=== PATIENT | female | born 1975 | race Caucasian/White ===

== ENCOUNTER 2022-06-30 16:51 | Outpatient (RCR) | payer OTHER, MEDICAID, SELFPAY ==
[2022-06-30 17:05] VITALS: BP_SYST 90
--- NOTE | 2022-06-30 18:05 | PTOPEVAL1 ---
Assessment and note entered by JT File, PT Evaluation Information Assessment Status Evaluation Diagnosis R biceps tenodesis Onset 06/03/22 Subjective Information patient injured the R shoulder back in august of 2021. she tried several non-invasive therapies with no improvement. she eventually had surgery on 06/03/22 for biceps tenodesis. she is now coming to skilled PT for rehab and temple of full strength and mobility. he is currently on a 2lb lifting restriction. Reported Pain Level Pain Score 0: Self Report Assessment PT Clinical Summary mrs. mead presents to skilled PT nearly 4 weeks post R biceps tenodesis. she presents this date with pain, decreased rom, and decreased strength of the R shoulder. she would benefit from continued skilled PT to return to full strength and rom equal to that of the L shoulder to return to full prior level functional activity performance and quality of life. Plan of Care Interventions Electrical Stimulation,Hot Pack/Cold Pack,Manual Therapy,Neuro Re-education,Patient/Caregiver Educati,Therapeutic Activities,Therapeutic Exercise PT Services Indicated Yes Treatment Frequency and 3x weekly for 12 visits Duration These treatments will address the objective and functional deficits as defined above. The patient will be advanced safely and appropriately in order for the patient to progress towards his/her prior level of function. Additional exercises will be introduced and as well as a comprehensive home exercise program upon discharge, if needed, ?to ensure carryover of functional gains achieved in the clinic. This treatment plan has been reviewed and agreement upon by the patient.
--- NOTE | 2022-08-03 17:51 | PTOPREEVAL ---
Assessment and note entered by Lara Ayala DPT Evaluation Information Assessment Status Re-evaluation Diagnosis R biceps tenodesis Onset 06/03/22 Subjective Information Ami reports overall her shoulder is much improved. she reports improvement with all activities besides reaching behind her and into her back pocket. She reports she has broken her 5# lifting precautions a few times and reports lifting was difficult. RTMD 08/13/22 Reported Pain Level Pain Score 3: Self Report Assessment PT Clinical Summary Mrs Starkey has made good progress in skilled PT . She has significantly improved ROM into R shoulder flexion and abduction but continues to have limited IR/ER of the R shoulder. She also has strength deficts at this time. She reports improvement with all activities but continues to report difficulty washing her back and reaching to her back pocket. She would benefit from continued skilled PT to address remaining impairments and return to PLOF. Plan of Care Interventions Electrical Stimulation,Hot Pack/Cold Pack,Manual Therapy,Neuro Re-education,Patient/Caregiver Educati,Therapeutic Activities,Therapeutic Exercise PT Services Indicated Yes Treatment Frequency and 2x weekly for 6 visits Duration These treatments will address the objective and functional deficits as defined above. The patient will be advanced safely and appropriately in order for the patient to progress towards his/her prior level of function. Additional exercises will be introduced and as well as a comprehensive home exercise program upon discharge, if needed, ?to ensure carryover of functional gains achieved in the clinic. This treatment plan has been reviewed and agreement upon by the patient.
--- NOTE | 2022-08-31 17:38 | PTOPDC ---
Assessment and note entered by Lara Ayala DPT Evaluation Information Assessment Status Re-evaluation Diagnosis R biceps tenodesis Onset 06/03/22 Subjective Information Patient reports the only times she notices deficits in the shoulder is with sleeping on the R side and sometimes she has discomfort at the bicep. She reports she has been able to return to all ADLs at PLOF. Reported Pain Level Pain Score 0: Self Report Assessment PT Clinical Summary Patient has been since for 18 visits from 06/30/22-. Patient made great progress during POC and met all goals besides goal for R shoulder ER/IR. Patient has returned to all ADLs at PLOF. She is independent with HEP and is appropriate for DC at this time. Plan of Care PT Services Indicated No Treatment Frequency and DC to independent HEP Duration
== END 2022-08-31 17:43 | disposition home or self-care (01) ==
LOC: CHSPT 16:51
PROVIDERS: Visit Provider Orthopaedic Surgery
DX: M75.21 Bicipital tendinitis, right shoulder (principal)
CPT/HCPCS: 97014; 97110; 97116; 97161; 97530; G0283

== ENCOUNTER 2022-09-23 11:29 | Emergency (ER) | payer OTHER, MEDICAID, SELFPAY ==
[2022-09-23 11:29] VITALS: BP 128/82; PULSE 87; RESP 20; TEMP 36.8; O2SAT 96
--- NOTE | 2022-09-23 11:54 | ECG_ITS ---
Measurements Intervals [place] Rate: 76 P: 44 AR: 157 QRS: 23 QRSD: 85 T: 31 QT: 375 QTc: 424 Interpretive Statements SINUS RHYTHM NONSPECIFIC T-WAVE ABNORMALITY- ANTEROLAT/INF LEADS BASELINE WANDER- I, II, AVR, AVL, AVF BORDERLINE ECG NO PREVIOUS ECG AVAILABLE FOR COMPARISON Electronically Signed On 09-23-2022 12:49:21 CDT by Dennis Ragsdale D.O.
[2022-09-23] MEDS: SODIUM CHLORIDE 0.9% IV 1,000 ML 999 ML IV CONT (12:09)
[2022-09-23 12:16] LABS: Appearance Urine Clear (Clear); Bilirubin Urine Negative (Negative); Blood Urine Negative (Negative); Color Urine Light Yellow (Yellow); Glucose Urine UA Negative (Negative); Ketones Urine Negative (Negative); Leukocyte Esterase Ur Trace LEU/UL (Negative); Nitrate Urine Negative (Negative); Protein Urine Negative (Negative); Urobilinogen Urine 0.2 mg/dL (0.2-1.0)
[2022-09-23 12:17] LABS: Basophils Absolute Auto 0.04 K/mm3 (0.00-0.10); Basophils Percent Auto 0.5 % (0.0-1.0); Eosinophils Absolute Auto 0.15 K/mm3 (0.02-0.50); Hematocrit 38.4 % (35.0-49.0); Hemoglobin 12.2 g/dL (12.0-15.0); Immature Granulocyte Absolute 0.04 K/mm3 (0.00-0.00); Immature Granulocyte Percent A 0.5 % (0.0-0.0); Lymphocytes Absolute Auto 2.91 K/mm3 (1.10-4.50); Lymphocytes Percent Auto 38.6 % (18.0-42.0); Mean Corpuscular HGB Conc 31.8 g/dL (32.0-36.0); Mean Corpuscular Hemoglobin 28.2 pg (27.0-31.0); Mean Corpuscular Volume 88.7 fL (78.0-102.0); Mean Platelet Volume 10.1 fl (9.2-11.8); Neutrophils Absolute Auto 3.8 K/mm3 (1.7-7.2); Neutrophils Percent Auto 50.4 % (50.0-70.0); Platelet Count Result 283 K/mm3 (150-420); Red Blood Count 4.33 M/mm3 (4.20-5.40); Red Cell Distribution Width 13.5 % (11.6-14.4); White Blood Count 7.5 K/mm3 (4.8-10.8)
[2022-09-23 12:24] LABS: Add Urine Microscopic? YES; Bacteria Urine 3+ /hpf; RBC Urine None seen /hpf (0-2); Squamous Epithelial Cell Urine Moderate /hpf (Few); WBC Urine 0-3 /hpf (0-3)
[2022-09-23 12:39] LABS: Alanine Aminotransferase 26 U/L (14-59); Albumin Level 3.2 g/dL (3.4-5.0); Alkaline Phosphatase 83 U/L (46-116); Anion Gap 9 mmol/L (8-16); Aspartate Amino Transferase 12 U/L (15-37); Bilirubin,Total 0.5 mg/dL (0.00-1.00); Blood Urea Nitrogen 18 mg/dL (7-18); Calcium 8.6 mg/dL (8.5-10.1); Carbon Dioxide 31 mmol/L (21-32); Chloride 108 mmol/L (98-108); Creatine Kinase 64 U/L (26-192); Estimated Glomerular Filt Rate 50; Glucose 91 mg/dL (70-99); Osmolality Calculated 307 mOsm/kg (285-295); Potassium 3.6 mmol/L (3.5-5.1); Sodium 148 mmol/L (136-145); Thyroid Stimulating Hormone 1.06 uIU/mL (0.36-3.74); Total Protein 6.8 g/dL (6.4-8.2)
--- NOTE | 2022-09-23 12:47 | ED.FEMALEGU ---
HPI - Female Genitourinary General Chief complaint: Unspecified Stated complaint: general fatigue/low back pain Time Seen by Provider: 09/23/22 11:35 Source: patient Mode of arrival: ambulatory Limitations: no limitations History of Present Illness HPI Narrative: this is a 47-year-old female with no significant past medical history has had complaints of some generalized aches and pains for the last 3 months has seen her primary care physician and apparently could not find any abnormalities, the patient does have a history of hyperlipidemia and depression. There is some lower abdominal discomfort with some dysuria with no hematuria no flank pain no fever chills no nausea vomiting no chest pain or shortness of breath. Related Data Home Medications Medication Instructions Recorded Confirmed atorvastatin 20 mg tablet 20 mg PO DAILY 09/23/22 09/23/22 escitalopram oxalate 10 mg tablet 10 mg PO DAILY 09/23/22 09/23/22 metoprolol tartrate 25 mg tablet 12.5 mg PO BID 09/23/22 09/23/22 norethindrone (contraceptive) 0.35 0.35 mg PO DAILY 09/23/22 09/23/22 mg tablet omeprazole 40 mg capsule,delayed 40 mg PO DAILY 09/23/22 09/23/22 release trazodone 50 mg tablet 50 mg PO DAILY 09/23/22 09/23/22 Allergies Allergy/AdvReac Type Severity Reaction Status Date / Time codeine Allergy Mild Unverified 12/10/08 17:38 Sulfa (Sulfonamide Allergy Mild Unverified 12/10/08 17:38 Antibiotics) Review of Systems Review of Systems: All systems reviewed & are unremarkable except as noted in HPI and below PMFSH Past Medical History Medical History Depression HLD (hyperlipidemia) Exam Const: General: healthy appearing Nutritional Appearance: well nourished Orientation/consciousness: patient oriented x3 Limitations: no limitations HENMT: Head: normal to inspection Eyes: Conjunctivae: conjunctivae normal Pupils: Equal, round and reactive pupils present EOM: EOMs intact bilaterally Direct Ophthalmoscopy: no photophobia Neck: Neck: normal visual inspection Chest: Chest palpation & inspection: normal inspection of the chest Resp: Effort & Inspection: normal respiratory effort Auscultation: clear to auscultation bilaterally Cardio: Rate: regular rate Rhythm: regular rhythm GI: GI Palp: Yes Soft to palpation : General: Yes bladder normal to palpation Urinary Catheter: Urinary Catheter: patent and draining Back/Spine/Pelvis: Back: no CVA tenderness Skin: General skin exam: normal color Rashes: no rashes Neuro: General: patient oriented x3 Extrem: General: normal to inspection Psych: Appearance: grossly normal Mental Status: mental status grossly normal Affect: normal affect Course Course Emergency Course: labs reviewed with patient, patient received IV fluids and does show that she has a urinary tract infection will send antibiotics to her pharmacy. Vital Signs Vital signs: Vital Signs Temperature 36.8 C 09/23/22 11:29 Pulse Rate 87 09/23/22 11:29 Respiratory Rate 20 09/23/22 11:29 Blood Pressure 128/82 09/23/22 11:29 Pulse Oximetry 96 09/23/22 11:29 Oxygen Delivery Room Air 09/23/22 11:29 Temperature 36.8 C 09/23/22 11:29 Pulse Rate 87 09/23/22 11:29 Respiratory Rate 20 09/23/22 11:29 Blood Pressure 128/82 09/23/22 11:29 Pulse Oximetry 96 09/23/22 11:29 Oxygen Delivery Room Air 09/23/22 11:29 MDM - Female Genitourinary Lab Data 09/23/22 12:08 09/23/22 12:08 Labs: Lab Results 09/23/22 09/23/22 09/23/22 Range/Units 11:54 12:08 12:08 WBC 7.5 (4.8-10.8) K/mm3 RBC 4.33 (4.20-5.40) M/mm3 Hgb 12.2 (12.0-15.0) g/dL Hct 38.4 (35.0-49.0) % MCV 88.7 (78.0-102.0) fL MCH 28.2 (27.0-31.0) pg MCHC 31.8 L (32.0-36.0) g/dL RDW 13.5 (11.6-14.4) % Plt Count 283 (150-420) K/mm3 MPV 10.1 (9.2-11.8) fl Immature Gran % (Auto
[2022-09-23 13:04] VITALS: BP 128/82; PULSE 84; RESP 18; TEMP 36.8; O2SAT 97
== END 2022-09-23 13:10 | disposition home or self-care (01) ==
PROVIDERS: Emergency Provider Emergency Medicine; PCP Family Medicine
DX: N30.00 Acute cystitis without hematuria (principal); E78.5 Hyperlipidemia, unspecified; F32.A Depression, unspecified
CPT/HCPCS: 36415; 80053; 81001; 82550; 84443; 85025; 93005; 96360; 99283; J7030

== ENCOUNTER 2024-08-12 14:59 | Emergency (ER) | payer OTHER, SELFPAY ==
[2024-08-12 15:00] VITALS: BP 120/70; PULSE 127; RESP 20; TEMP 37.2; O2SAT 96
--- OUTSIDE RECORDS SUMMARY | 2024-08-12 15:02 | XMS_ITS | Clinical Summary ---
Author Organization [facility] Address [address] [place] [address] Care Team Providers Care Independent Video Producer Name Role Phone Steve Page MD Unavailable Unavailable Kishor Ibarra PA-C Unavailable [phone] Jeyson Moreno MD Unavailable Reddy Coleman MD Primary Care Provider Allergies Active Allergy Reactions Criticality Noted Date Comments Codeine GI Upset Medium 12/02/2019 Doesn't feel right Neomycin-Bacitracin Zn-Polymyx Rash Low 12/01 Sulfa Antibiotics Rash Low 12/02/2019 Medications ibuprofen 800 MG tabletIndicatio ns:Pain,not told to stop taking Take 1 tablet (800 mg total) by mouth every 4 (four) hours as needed for Pain. Indications: Pain, not told to stop taking Active omeprazole 40 MG capsule Take 1 capsule (40 mg total) by mouth daily. Active metoprolol tartrate 25 MG tablet Take 0.5 tablets (12.5 mg total) by mouth 2 (two) times daily. 60 tablet 07/25/2021 Active Norethindrone, Contraceptive, 0.35 MG tablet Take 1 tablet by mouth daily. 10/14/2021 Active traZODone 50 MG tablet Take 1 tablet (50 mg total) by mouth nightly as needed. at bedtime. 12/14/2021 Active DULoxetine (CYMBALTA) 20 MG capsule Take 2 capsules (40 mg total) by mouth daily. 01/09/2023 Active famotidine (PEPCID) 20 MG tablet Take 1 tablet (20 mg total) by mouth nightly as needed. 01/04/2023 Active traMADol (ULTRAM) 50 MG tablet Take 1 tablet (50 mg total) by mouth 2 (two) times daily as needed. 07/04/2023 Active montelukast (SINGULAIR) 10 MG tablet Take 1 tablet (10 mg total) by mouth daily. 06/24/2023 Active atorvastatin (LIPITOR) 40 MG tablet Take 1 tablet (40 mg total) by mouth daily. 07/15/2023 Active hydrOXYzine (ATARAX) 10 MG tablet Take 1 tablet (10 mg total) by mouth every 8 (eight) hours as needed. 10/11/2023 Active cetirizine (ZYRTEC) 5 MG tablet Take 1 tablet (5 mg total) by mouth daily. Active Active Problems Problem Noted Date Diagnosed Date Painful orthopaedic hardware 03/14/2023 Overview (03/14/2023): Added automatically from request for surgery [id number] History of arthroscopy of right shoulder 023 Superior glenoid labrum lesi on of right shoulder, subsequent encounter 05/05/2022 Overview (05/05/2022): Added automatically from request for surgery [id number] Shoulder impingement syndrome, right 01/12/2022 DVT (deep venous thrombosis) ([facility]) 0 11/11/2020 Acquired hallux valgus of right foot 07/29/2020 Hallux valgus (acquired), right foot 05/02/2020 Chronic venous insufficiency 10/31/2018 Varicose veins of right leg with edema 9 Chest pain of uncertain etiology 07/26/2018 Palpitations 07/26/2018 SVT (supraventricular tachycardia) ([facility]/ [facility]) 07/26/2018 Former smoker 07/26/2018 Mixed hyperlipidemia 07/26/2018 Migraine 07/26/2018 Varicose veins of both lower extremities with co mplications Encounters Date Type Department Care Team Description 07/05/2024 7:15 PM INTERNAL COMMUNICATIONS WRITER - 07/05/2024 8:09 PM [facility] [address] [place] [address] Clif Mayberry MD Cough Discharge Disposition: Home or Self Care (Routine Discharge) 07/05/2024 Travel from Last 3 Months Family History Medical History Relation Comments Cancer Father Cancer Mother Breast Cancer Paternal Grandmother Cancer Sister 1 Relation Status Comments Brother 1 Alive Brother 2 Alive Brother 3 Father Maternal Grandfather Maternal Grandmother Mother Paternal Grandfather Paternal Grandmother Sister 1 Alive Sister 2 Alive Sister 3 Alive Social History Tobacco Use Types Packs/Day Years Used Date Smoking Tobacco: Former Cigarettes Q uit: 1998 Smokeless Tobacco: Never Tobacco Cessation:Counseling Given: Not Answered Comments:one pack every 2 months-second hand smoke Alcohol Use Standard Drinks/Week Comments No 0 (1 standard drink = 0.6 oz pur e alcohol) AUDIT-C Answer Date Recorded Frequency of Alcohol Consumption Never 10/09/2018 Average Number of Drinks Not on file 019 Frequency of Binge Drinking Not on file 09/25 Comments No Sex and Gender Information Value Date Recorded Sex Assigned at Not on file Legal Sex Female 5:50 PM INTERNAL COMMUNICATIONS WRITER Gender Identity Not on file Sexual Orientation Not on file 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 Not on file Not on file Last Filed Vital Signs Vital Sign Reading Time Taken Comments Blood Pressure 119/87 07/05/2024 7:19 PM INTERNAL COMMUNICATIONS WRITER Pulse 99 07/05/2024 7:19 PM INTERNAL COMMUNICATIONS WRITER Temperature 36.8 C (98.2 F) 07/05/2024 7:19 PM INTERNAL COMMUNICATIONS WRITER Respiratory Rate 16 07/05/2024 7:19 PM INTERNAL COMMUNICATIONS WRITER Oxygen Saturation 95% 07/05/2024 8:00 PM INTERNAL COMMUNICATIONS WRITER Inhaled Oxygen Concentration - - Weight 97.5 kg (215 lb) 07/05/2024 7:19 PM INTERNAL COMMUNICATIONS WRITER Height 182.9 cm (6') 07/05/2024 7:19 PM INTERNAL COMMUNICATIONS WRITER Body Mass Index 29.16 07/05/2024 7:19 PM INTERNAL COMMUNICATIONS WRITER Plan of Treatment Health Maintenance Due Date Last Done Comments Cervical Cancer Screening Pa p Smear (Age 30 to 64) Every 3 Years 1973 Colorectal Cancer Screening Colonoscopy (10 Years) 1973 Annual Physical 1976 Hepatitis C 1991 DTaP, Tdap and Td Vaccines ( 1 - Tdap) 1992 Hepatitis B Vaccines (1 of 3 - 19+ 3-dose series) 1992 Cervical Cancer Screening Pa p with HPV Testing (Age 30 to 64) Every 5 Years 2003 Cervical Cancer Screening wi th HPV 2003 Zoster Vaccines (1 of 2) 2023 COVID-19 Vaccine (2023-2 5 season) 2024 Influenza Adult (#1) 2024 Mammogram Screening 05/17/2024 05/17/2022, 12/17/2020 Meningococcal B Vaccine Aged Out No l onger eligible based on patient's age to complete this topic Meningococcal Vaccine Aged Out No lesli john eligible based on patient's age to complete this topic Pneumococcal Vaccine: Pediatrics (0 to 5 Years) and At-Risk Patients (6 to 64 Years) Aged Out No longer eligible b ased on patient's age to complete this topic RSV Immunizations Under 20 Months Aged Out No longer eligible b ased on patient's age to complete this topic Medical Devices Implanted Type Area Ocular Care Technologist Device Identifier Shelf Expiration Date Model / Serial / Lot Suture Indian, Swivelock Tenodesis, Biocomposite 7x19.1mm - [id number] Implanted:Qty: 1 on 06/03/2022 by Jacky Diop MD at [facility] Indian Right: Shoulder [employer] [id number] 12/24/2025 [id number] / / [id number] Indian Suture Swivelock Self Punch 24.5mm Biocomposite - [id number] Implanted:Qty: 1 on 06/03/2022 by Jacky Diop MD at [facility] Indian Right: Shoulder [employer] [id number] 08/24/2025 [id number] / / [id number] Screw Alicia 2.7 Cortical 16 - [id number] Implanted:Qty: 2 on 03/13/2020 by Brad Garcia MD at [facility] Right: Foot [employer] [id number] / / Screw Cortical Depuy 2.7 X 26mm - [id number] Implanted:Qty: 1 on 03/13/2020 by Brad Garcia MD at [facility] Right: Foot [employer] [id number] / / Screw Cortical Depuy 2.7 X 22mm - [id number] Implanted:Qty: 1 on 03/13/2020 by Brad Garcia MD at [facility] Right: Foot [employer] [id number] / / Screw Cortical Depuy 2.7 X 20mm - [id number] Implanted:Qty: 1 on 03/13/2020 by Brad Garcia MD at [facility] Right: Foot [employer] [id number] / / Plate T Timax 2.7mm Screw Mini Fragment 3x2 Hole Bone Nonsterile - [id number] Implanted:Qty: 1 on 03/13/2020 by Brad Garcia MD at [facility] Right: Foot [employer] [id number] / / Explanted Type Area Ocular Care Technologist Device Identifier Shelf Expiration Date Model / Serial / Lot Drill Bit Depuy 2.0mm - [id number] Explanted:Qty: 1 on 03/13/2020 at [facility] Right: Foot [employer] [id number] / / K-Wire Threaded Tip 1.6mm - [id number] Explanted:Qty: 2 on 03/13/2020 at [facility] Right: Foot [employer] [id number] / / Procedures Procedure Name Priority Date/Time Associated Diagnosis Comments XR CHEST PORTABLE STAT 07/05/2024 7:5 8 PM INTERNAL COMMUNICATIONS WRITER MG SCREENING W JAQUAN EMIL DIGI Routine 05/17/2022 3:29 PM INTERNAL COMMUNICATIONS WRITER Visit for screening mammogram from Last 3 Months or Most Recently Relevant to Health Maintenance Results * XR CHEST PORTABLE (07/05/2024 7:58 PM INTERNAL COMMUNICATIONS WRITER) Anatomical Region Laterality Modality Chest Radiographic Lisbeth ging 07/05/2024 8:00 PM INTERNAL COMMUNICATIONS WRITER Impressions 07/05/2024 8:01 PM INTERNAL COMMUNICATIONS WRITER Impression: No acute findings. Referred By: Interpreted By: Waldemar Sawyer MD, 07/05/2024 8:00 PM Narrative 07/05/2024 8:01 PM INTERNAL COMMUNICATIONS WRITER [address] [place] [id number] Examination: Chest 1 view portable History: Cough DATE/TIME: 07/05/2024 7:58 PM Comparison: 05/03/2024 Technique: AP portable view of the chest was obtained. Findings: Heart size, mediastinal contours and pulmonary vasculature are within normal limits. No pulmonary consolidation, pleural effusion or pneumothorax. No acute osseous abnormality. Procedure Note Waldemar Sawyer MD - 07/05/[address] [place] [address] Examination: Chest 1 view portable History: Cough DATE/TIME: 07/05/2024 7:58 PM Comparison: 05/03/2024 Technique: AP portable view of the chest was obtained. Findings: Heart size, mediastinal contours and pulmonary vasculature arewithin normal limits. No pulmonary consolidation, pleural effusion orpneumothorax. No acute osseous abnormality. Impression: No acute findings. Referred By: Interpreted By: Waldemar Sawyer MD, 07/05/2024 8:00 PM us Clif Mayberry MD GENERAL IMAGING Final Resul t * MG SCREENING W JAQUAN EMIL DIGI (05/17/2022 3:29 PM INTERNAL COMMUNICATIONS WRITER) Anatomical Region Laterality Modality Breast Bilateral Mammography 05/17/2022 5:08 PM INTERNAL COMMUNICATIONS WRITER Narrative 05/17/2022 5:08 PM INTERNAL COMMUNICATIONS WRITER Examination: Digital screening mammogram with CAD. Clinical history: Asymptomatic patient presents for routine screening. Comparison: 12/17/2020, 08/10/2016, 07/10/2015. Technique: Bilateral digital mammograms. The exam was interpreted with the use of a computer-aided detection (CAD) system. Additional 3-D tomosynthesis images were acquired. Tissue density: The breast tissue is heterogeneously dense. Findings: The breast tissue is heterogeneously dense. The dense tissue may obscure some lesions mammographically. No suspicious mass, microcalcification or area of architectural distortion can be identified. From a mammographic standpoint, routine followup in one year would seem adequate. IMPRESSION: No suspicious change since the previous exams. Recommendation: 1: Routine Screening Bilateral in 1 Year Assessment: ACR BI-RADS 1 - NEGATIVE Ordered By: ARVIND ARRIOLA Interpreted By: Neville Abraham MD, 05/17/2022 5:[address] MAMMO Final Result from Last 3 Months or Most Recently Relevant to Health Maintenance Insurance [employer] Advance Directives * Full Code (Latest Code Status on File) Date Activated Date Inactivated Comments 11/11/2020 5:47 PM 11/12/2020 8:16 PM * Full Code Date Activated Date Inactivated Comments 11/24/2018 11:44 AM 11/24/2018 4:05 PM Care Teams Independent Video Producer Relationship Specialty Start Date End Date Reddy Coleman MD [address] [place] [phone] PCP - General FAMILY PRACTICE 08/05/20 Steve Page MD EP Geriatric Aide CLINICAL CARDIAC ELECTROPHYSIOLOGY 08/01/18 Kishor Ibarra PA-C [address] [place] [address] Electrophysiology 08/01/18 Jeyson Moreno MD [address] [place] [address] Vascular/Geriatric Aide INTERNAL MEDICINE 10/05/18
--- OUTSIDE RECORDS SUMMARY | 2024-08-12 15:02 | XMS_ITS | Clinical Summary ---
Author Organization [facility] Address [address] [place] [address] Care Team Providers Care Business Performance Analyst Name Role Phone Reddy Coleman MD Primary Care Provider Allergies Active Allergy Reactions Criticality Noted Date Comments Codeine Syncope,Stomach upset High 06/23/2018 Doesn't feel right Neomycin-Bacitracin- Polymyxin Rash Medium 06/23/2018 Sulfa (Sulfonamide Antibiotics) Rash Medium 06/23/2018 Medications raNITIdine (ZANTAC) 300 mg tablet Take 1 tablet (300 mg total) by mouth daily 3 8 Active LARISSIA 0.1-20 mg-mcg per tablet TAKE ACTIVE PILL CONTINUOUSLY X 3 MONTHS DIRECTED 1 8 Active simvastatin (ZOCOR) 20 mg tablet Take 1 tablet (20 mg total) by mouth daily 3 8 Active atorvastatin (LIPITOR) 40 mg tablet Take 1 tablet (40 mg total) by mouth daily Active DULoxetine DR (CYMBALTA) 20 mg capsule Take 2 capsules (40 mg total) by mouth daily 3 Active meclizine (ANTIVERT) 25 mg tablet Take 1 tablet (25 mg total) by mouth 3 (three) times a day as needed 3 Active metoprolol tartrate (LOPRESSOR) 25 mg immediate release tablet Take 0.5 tablets (12.5 mg total) by mouth 2 (two) times a day Active traZODone (DESYREL) 50 mg tablet Take 1 tablet (50 mg total) by mouth nightly as needed Active metroNIDAZOLE (FLAGYL) 500 mg tablet 1 TABLET BY MOUTH 2 TIMES A DAY 4 Active montelukast (SINGULAIR) 10 mg tablet Take 1 tablet (10 mg total) by mouth daily 3 Active Active Problems No known active problems Surgical History Surgery Date Site/Laterality Comments CARDIAC CATHETERIZATION 06/27/2018 - 06/26/2019 BUNIONECTOMY 06/27/2019 - 06/26/2020 SHOULDER ARTHROPLASTY Medical History Medical History Date Comments Heart disease Migraine Family History Medical History Relation Name Comments Cancer Brother Diabetes Brother Cancer Father Cancer Mother Diabetes Mother Cancer Sister Diabetes Sister Relation Name Status Comments Brother Father Mother Sister Social History Tobacco Use Types Packs/Day Years Used Date Smoking Tobacco: Never Smokeless Tobacco: Never Tobacco Cessation:Counseling Given: Not Answered AUDIT-C Answer Date Recorded Q1: How often do you have a drink containing alc ohol? Monthly or less 09/08/2023 Average Number of Drinks Not on file 024 Frequency of Binge Drinking Not on file 08/25 Personal Safety Answer Date Recorded Getting School Help Needed Not on file 08/05 Comments No Sex and Gender Information Value Date Recorded Sex Assigned at Not on file Legal Sex Female 7:28 PM PILOT CONTROL OPERATOR Gender Identity Not on file Sexual Orientation Not on file Obstetrics History Last Filed Vital Signs Vital Sign Reading Time Taken Comments Blood Pressure 139/93 06/23/2018 3:56 PM PILOT CONTROL OPERATOR Pulse 113 06/23/2018 3:56 PM PILOT CONTROL OPERATOR Temperature 36.7 C (98.1 F) 06/23/2018 3:56 PM PILOT CONTROL OPERATOR Respiratory Rate 16 06/23/2018 3:56 PM PILOT CONTROL OPERATOR Oxygen Saturation 96% 06/23/2018 3:56 PM PILOT CONTROL OPERATOR Inhaled Oxygen Concentration - - Weight 99.6 kg (219 lb 8 oz) 09/08/2023 3:08 PM CDT Height 182.9 cm (6') 09/08/2023 3:08 PM CDT Body Mass Index 29.77 09/08/2023 3:08 PM CDT Plan of Treatment Health Maintenance Due Date Last Done Comments Breast Cancer Screening-Mammogram 1973 Cervical Cancer Screening 1973 Colon Cancer Screening-Colonoscopy 1973 Depression Screening 1973 Hepatitis C Screening 1973 DTaP/Tdap/Td Vaccine (1 - Tdap) 1984 Hepatitis B Screening 1991 Regular Well Visit/Exam 18-64 1991 Zoster Vaccine (1 of 2) 2023 Covid-19 Vaccine (2 - 2023-2 5 season) 2024 11/09/2022 Influenza Vaccine (#1) 2024 Pneumococcal vaccine <65 Aged Out No longer eligible based on patient's age to complete this topic Insurance [employer] OPEN ACCESS Care Teams Business Performance Analyst Relationship Specialty Start Date End Date Reddy Coleman MD PCP - General 06/23/18
--- OUTSIDE RECORDS SUMMARY | 2024-08-12 15:02 | XMS_ITS | Encounter Summary ---
Author Organization [facility] Address [address] [place] [id number] Care Team Providers Care Time Piece Repairer Name Role Phone Steve Page MD Unavailable Unavailable Kishor Ibarra PA-C Unavailable [phone] Jeyson Moreno MD Unavailable Reddy Coleman MD Primary Care Provider Encounter Details Date Type Department Care Team (Late st Contact Info) Description 10/17/2023 Tissue Genesis Message Enc [facility] [address] [place] [address] Kori Garza PA [address] [place] [address] Visit Follow Up Social History Tobacco Use Types Packs/Day Years Used Date Smoking Tobacco: Former Cigarettes Q uit: 1998 Smokeless Tobacco: Never Comments:one pack every 2 mo [facility]-second hand smoke Alcohol Use Standard Drinks/Week Comments [...] on file Legal Sex Female 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 Answer Date of Assessment Author Status No 11/11/2020 4:34 PM CDT Activ e * Do you have serious difficulty walking or climbing stairs? Answer Date of Assessment Author Status No 11/11/2020 4:34 PM CDT [place] RN Active * Do you have difficulty dressing or bathing? Answer Date of Assessment Author Status No 11/11/2020 4:34 PM CDT [place] RN Active * Because of a physical, mental, or emotional condition, do you have difficulty doing errands alone such as visiting a doctor's office or shopping? Answer Date of Assessment Author Status No 11/11/2020 4:34 PM CDT [place] RN Active documented as of this encounter Mental Status * Because of a physical, mental, or emotional condition, do you have serious difficulty concentrating, remembering, or making decisions? Answer Entry Date Author Status No 11/11/2020 4:34 PM CDT [place] RN Active documented in this encounter Plan of Treatment Not on file documented as of this encounter Visit Diagnoses Not on filedocumented in this encounter Care Teams Time Piece Repairer Relationship Specialty Start Date End Date Reddy Coleman MD [address] [place] [phone] PCP - General FAMILY PRACTICE 08/05/20 Steve Page MD EP Blast Hole Driller CLINICAL CARDIAC ELECTROPHYSIOLOGY 08/01/18 Kishor Ibarra PA-C [address] [place] [phone] Electrophysiology 08/01/18 Jeyson Moreno MD [address] [place] [phone] Vascular/Blast Hole Driller INTERNAL MEDICINE 10/05/18 documented as of this encounter
--- OUTSIDE RECORDS SUMMARY | 2024-08-12 15:02 | XMS_ITS | Encounter Summary ---
Author Organization [facility] Address [facility] [place] [address] Care Team Providers Care Medical Screener Name Role Phone Reddy Coleman MD Primary Care Provider [phone] eHrnan Gallagher MD Unavailable Unavailable Steve Page MD Unavailable Unavailable Kishor Ibarra PA-C Unavailable [phone] Jeyson Moreno MD Unavailable August Rg MD Primary Care Provider [phone] Reddy Coleman MD Primary Care Provider [phone] Encounter Details Date Type Department Care Team (Late st Contact Info) Description 12/02/2018 Abstract SFL CONVERSION [address] [place] [address] , Generic Conversion, Social History Tobacco Use Types Packs/Day Years Used Date Smoking Tobacco: Former Cigarettes Q uit: 1998 Smokeless Tobacco: Never Alcohol Use Standard Drinks/Week Comments No 0 (1 standard drink = 0.6 oz pur e alcohol) AUDIT-C Answer Date Recorded Frequency of Alcohol Consumption Never 10/09/2018 Average Number of Drinks Not on file 019 Frequency of Binge Drinking Not on file 09/25 Comments Unknown Sex and Gender Information Value Date Recorded Sex Assigned at Not on file Legal Sex Female 5:50 PM EVP [place] Gender Identity Not on file Sexual Orientation Not on file 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 Answer Date of Assessment Author Status No 11/23/2018 2:40 PM CDT Activ e documented as of this encounter Plan of Treatment Not on file documented as of this encounter Visit Diagnoses Not on filedocumented in this encounter Additional Health Concerns Infection Onset Date Last Indicated Resolved Time COVID-19 Rule Out 03/10/2020 03/10/2020 03/11/2020 11:30 PM CDT COVID-19 Rule Out 08/05/2020 08/05/2020 08/06/2020 3:30 PM [place]P [place] COVID-19 Rule Out 02/01/2023 02/01/2023 02/01/2023 5:36 PM CDT documented as of this encounter Care Teams Medical Screener Relationship Specialty Start Date End Date Reddy Coleman MD [address] [place] [phone] PCP - General FAMILY PRACTICE 07/04/18 05/24/19 August Rg MD [address] [place] [phone] PCP - General FAMILY PRACTICE 05/25/19 08/04/20 Reddy Coleman MD [address] [place] [phone] PCP - General FAMILY PRACTICE 08/05/20 Hernan Gallagher MD [address] [place] [phone] INTERVENTIONAL CARDIOLOGY 07/04/18 07/04/19 Steve Page MD [address] [place] [phone] EP Water Taxi Operator CLINICAL CARDIAC ELECTROPHYSIOLOGY 08/01/18 Kishor Ibarra PA-C [address] [place] [phone] Electrophysiology 08/01/18 Jeyson Moreno MD [address] [place] [phone] Vascular/Water Taxi Operator INTERNAL MEDICINE 10/05/18 documented as of this encounter
--- OUTSIDE RECORDS SUMMARY | 2024-08-12 15:02 | XMS_ITS | Referral Summary ---
Author Organization [facility] Address [address] [place] [address] Care Team Providers Care Reducing System Operator Name Role Phone Reddy Coleman MD Primary Care Provider [phone] Allergies Active Allergy Reactions Criticality Noted Date [...] Active Active Problems No known active problems Social History Tobacco Use Types Packs/Day Years [...] on file Legal Sex Female 7:28 PM BILLING SERVICES MANAGER Gender Identity Not on file Sexual Orientation Not on file Last Filed Vital Signs Vital Sign Reading Time Taken Comments Blood Pressure 139/93 06/23/2018 3:56 PM BILLING SERVICES MANAGER Pulse 113 06/23/2018 3:56 PM BILLING SERVICES MANAGER Temperature 36.7 C (98.1 F) 06/23/2018 3:56 PM BILLING SERVICES MANAGER Respiratory Rate 16 06/23/2018 3:56 PM BILLING SERVICES MANAGER Oxygen Saturation 96% 06/23/2018 3:56 PM BILLING SERVICES MANAGER Inhaled Oxygen Concentration - - Weight 99.6 kg (219 lb 8 oz) 09/08/2023 3:08 PM CDT Height 182.9 cm (6') 09/08/2023 3:08 PM CDT Body Mass Index 29.77 09/08/2023 3:08 PM CDT Plan of Treatment Not on file Insurance [facility] ACCESS CHOICE [employer] OPEN ACCESS Care Teams Reducing System Operator Relationship Specialty Start Date End Date Reddy Coleman MD PCP - General 06/23/18
--- OUTSIDE RECORDS SUMMARY | 2024-08-12 15:02 | XMS_ITS | Encounter Summary ---
Author Organization [facility] Address [address] [place] [address] Care Team Providers Care Ichthyologist Name Role Phone Steve Page MD Unavailable Unavailable Kishor Ibarra PA-C Unavailable [phone] Jeyson Moreno MD Unavailable Reddy Coleman MD Primary Care Provider Encounter Details Date Type Department Care Team (Late st Contact Info) Description 08/10/2023 Dem[employer] Message Enc [facility] [address], [facility] [address] [place] [address] Jacky Diop MD [address] [place] [address] Visit Follow Up Social History Tobacco Use Types Packs/Day Years Used Date Smoking Tobacco: Former Cigarettes Q uit: 1998 Smokeless Tobacco: Never Comments:one pack every 2 mo [facility]-second hand smoke Alcohol Use Standard Drinks/Week Comments [...] on file Legal Sex Female 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 Gender Identity Not on file Sexual Orientation Not on file 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
[2024-08-12 15:07] VITALS: O2SAT 96
--- NOTE | 2024-08-12 15:16 | PC.NURSE ---
Covid culture sent to lab
--- NOTE | 2024-08-12 15:20 | ED_ITS ---
HPI - URI/Sore Throat General Chief Complaint: Upper Respiratory Infection Stated Complaint: flu like symptoms Time Seen by Provider: 08/12/24 15:02 Source: patient Mode of arrival: ambulatory Limitations: no limitations History of Present Illness HPI Narrative: 49-year-old female with a history of depression, dyslipidemia presents to the ED with a 2 day history -- fever with chest -- bodyache -- nonproductive cough. No chest pain. No shortness of breath MD elicited complaint: fever and cough Onset (ago): day(s) ( 2 days) Consistency: constant Able to tolerate fluids by mouth: Yes Exacerbating factors: nothing Relieving factors: nothing Associated symptoms: denies other symptoms, fever, chills and myalgias Treatments prior to arrival: none Related Data Home Medications ?Medication ?Instructions ?Recorded ?Confirmed ?Last Taken ?Type atorvastatin 20 mg tablet 20 mg PO DAILY 09/23/22 09/23/22 Unknown History escitalopram oxalate 10 mg tablet 10 mg PO DAILY 09/23/22 09/23/22 Unknown History metoprolol tartrate 25 mg tablet 12.5 mg PO BID 09/23/22 09/23/22 Unknown History norethindrone (contraceptive) 0.35 0.35 mg PO DAILY 09/23/22 09/23/22 Unknown History mg tablet omeprazole 40 mg capsule,delayed 40 mg PO DAILY 09/23/22 09/23/22 Unknown History release trazodone 50 mg tablet 50 mg PO DAILY 09/23/22 09/23/22 Unknown History Allergies Allergy/AdvReac Type Severity Reaction Status Date / Time bacitracin (From Neosporin Allergy Mild Rash Verified 08/12/24 15:11 ([id number])) codeine Allergy Mild Rash Unverified 08/12/24 15:11 neomycin (From Neosporin Allergy Mild Rash Verified 08/12/24 15:11 ([id number])) polymyxin B (From Neosporin Allergy Mild Rash Verified 08/12/24 15:11 ([id number])) Sulfa (Sulfonamide Allergy Mild Rash Unverified 08/12/24 15:11 Antibiotics) Review of Systems Review of Systems: All systems reviewed & are unremarkable except as noted in HPI and below PMFSH Past Medical History Medical History HLD (hyperlipidemia) Depression Exam Narrative: afebrile Const: General: ill appearing Nutritional Appearance: well nourished Orientation/consciousness: patient oriented x3 Limitations: no limitations HENMT: Head: normal to inspection Ears: external ears normal Face/Nose/Sinus: Normal external nose present Face and sinus: normal facial exam Mouth: Yes Normal oral and palatal mucosa present Throat: posterior oropharynx normal Eyes: Conjunctivae: conjunctivae normal Pupils: Equal, round and reactive pupils present EOM: EOMs intact bilaterally Direct Ophthalmoscopy: no photophobia Neck: Neck: normal visual inspection, no lymphadenopathy and no meningeal signs Chest: Chest palpation & inspection: normal inspection of the chest Resp: Effort & Inspection: normal respiratory effort Auscultation: clear to auscultation bilaterally Cardio: Rate: regular rate Rhythm: regular rhythm GI: GI Palp: Yes Soft to palpation Auscultation: normal bowel sounds : General: Yes no CVA tenderness Back/Spine/Pelvis: Back: no CVA tenderness Skin: General skin exam: normal color Rashes: no rashes Wounds: no wounds Neuro: General: patient oriented x3, moves all extremities, no meningeal signs, no focal motor deficits and CN's II-XI intact bilaterally Cranial nerves: Yes Nystagmus not present Speech: normal speech Gait exam (Neuro): Normal gait present Extrem: General: normal to inspection and no clubbing, cyanosis or edema Psych: Mental Status: mental status grossly normal Affect: normal affect Attitude: cooperative Course Course Emergency Course: upper respiratory tract infection-- influenza a Vital Signs Vital signs: Vital Signs Temperature 37.2 C 08/12/24 15:00 Pulse Rate 127 H 08/12/24 15:00 Respiratory Rate 08/12/24 15:00 Blood Pressure 120/70 08/12/24 15:00 Pulse Oximetry 96 08/12/24 15:00 Oxygen Delivery Room Air 08/12/24 15:00 Temperature 37.2 C 08/12/24 15:00 Pulse Rate 127 H 08/12/24 15:00 Respiratory Rate 08/12/24 15:00 Blood Pressure 120/70 08/12/24 15:00 Pulse Oximetry 96 08/12/24 15:07 Oxygen Delivery Room Air 08/12/24 15:07 MDM - URI/Sore Throat MDM Narrative Medical decision making narrative: influenza a Differential Diagnosis Differential diagnosis: Likely upper respiratory infection and viral infection Lab Data Attestation: I reviewed the patient's lab results. Labs: Lab Results 08/12/24 Range/Units 15:20 Influenza A (RT-PCR) Positive A (Negative) Influenza B (RT-PCR) Negative (Negative) RSV (RT-PCR) Negative (Negative) SARS-CoV-2 RNA (RT-PCR) Negative (Negative) Discharge Plan Discharge Clinical Impression: Influenza Patient Disposition: Home, Self-Care Condition: Stable Instructions: Antibiotic Form, Influenza (ED) Patient Language: Vietnamese Prescriptions: No Action atorvastatin 20 mg tablet 20 mg PO DAILY trazodone 50 mg tablet 50 mg PO DAILY omeprazole 40 mg capsule,delayed release(DR/EC) 40 mg PO DAILY norethindrone (contraceptive) 0.35 mg tablet 0.35 mg PO DAILY escitalopram oxalate 10 mg tablet 10 mg PO DAILY metoprolol tartrate 25 mg tablet 12.5 mg PO BID nitrofurantoin monohyd/m-cryst [Macrobid] 100 mg capsule 100 mg PO Q12H 7 Days Qty: 14 0RF Rx Instructions: must administer with a meal/food Follow-up/Referrals: [place],MD Reddy [Primary Care Provider] - Time of Disposition: 16:16
[2024-08-12] MEDS: KETOROLAC 30 MG/ML VIAL (*BKC) IM (15:32)
[2024-08-12 16:12] LABS: Influenza A QL RT-PCR Positive (Negative); Influenza B QL RT-PCR Negative (Negative); RSV RNA, RT-PCR Negative (Negative); SARS-CoV-2 RNA PCR Negative (Negative)
[2024-08-12 16:26] VITALS: BP 122/69; PULSE 110; RESP 20; TEMP 37.2; O2SAT 96
== END 2024-08-12 16:27 | disposition home or self-care (01) ==
PROVIDERS: Emergency Provider Internal Medicine Critical Care Medicine; PCP Family Medicine
DX: J11.1 Influenza due to unidentified influenza virus with other respiratory manifestations (principal); E78.5 Hyperlipidemia, unspecified; Z20.822 Contact with and (suspected) exposure to COVID-19
CPT/HCPCS: 87637; 96372; 99283; J1885

== ENCOUNTER 2024-08-15 08:06 | Emergency (ER) | payer OTHER, SELFPAY ==
--- NOTE | ~2024-08-15 | XR_ITS ---
EXAMINATION: XR chest 1V portable 08/15/2024 08:52 INDICATION: Cough PROCEDURE: 2 view chest COMPARISON: No prior studies for comparison. FINDINGS: The lungs are clear. The cardiomediastinal silhouette is within normal limits. There are no pleural effusions. There is no pneumothorax suspected. IMPRESSION: 1: NO ACUTE CARDIOPULMONARY DISEASE. Reviewed, dictated and finalized at location B. SOLE SEWER
--- NOTE | 2024-08-15 08:07 | ED.URI ---
HPI - URI/Sore Throat General Chief Complaint: Upper Respiratory Infection Stated Complaint: FLU Time Seen by Provider: 08/15/24 08:06 Source: patient Mode of arrival: ambulatory Limitations: no limitations History of Present Illness HPI Narrative: 49-year-old female with a history of depression, dyslipidemia presented to the ED on 08/12/2024 for upper respiratory symptoms and was diagnosed to have influenza A. The patient presents with ongoing -- Fever with chills. -- body aches -- nasal congestion -- nonproductive cough patient has had these symptoms since 08/10/2024. MD elicited complaint: fever, cough and nasal congestion Onset (ago): day(s) ( Symptoms have been present for 6 days.) Consistency: constant Severity: moderate Able to tolerate fluids by mouth: Yes Exacerbating factors: nothing Relieving factors: nothing Associated symptoms: denies other symptoms, fever, chills, myalgias, nasal congestion and cough Treatments prior to arrival: ibuprofen Related Data Home Medications ?Medication ?Instructions ?Recorded ?Confirmed ?Last Taken ?Type atorvastatin 20 mg tablet 20 mg PO DAILY 09/23/22 09/23/22 Unknown History escitalopram oxalate 10 mg tablet 10 mg PO DAILY 09/23/22 09/23/22 Unknown History metoprolol tartrate 25 mg tablet 12.5 mg PO BID 09/23/22 09/23/22 Unknown History norethindrone (contraceptive) 0.35 0.35 mg PO DAILY 09/23/22 09/23/22 Unknown History mg tablet omeprazole 40 mg capsule,delayed 40 mg PO DAILY 09/23/22 09/23/22 Unknown History release trazodone 50 mg tablet 50 mg PO DAILY 09/23/22 09/23/22 Unknown History Allergies Allergy/AdvReac Type Severity Reaction Status Date / Time bacitracin (From Neosporin Allergy Mild Rash Verified 08/15/24 09:29 ([id number])) codeine Allergy Mild Rash Unverified 08/15/24 09:29 neomycin (From Neosporin Allergy Mild Rash Verified 08/15/24 09:29 ([id number])) polymyxin B (From Neosporin Allergy Mild Rash Verified 08/15/24 09:29 ([id number])) Sulfa (Sulfonamide Allergy Mild Rash Unverified 08/15/24 09:29 Antibiotics) Review of Systems Review of Systems: All systems reviewed & are unremarkable except as noted in HPI and below [facility], [facility] Past Medical History Medical History HLD (hyperlipidemia) Depression Exam Narrative: Afebrile. Oxygen saturation 97% on room air. Const: General: no acute distress Nutritional Appearance: well nourished Orientation/consciousness: patient oriented x3 Limitations: no limitations HENMT: Head: normal to inspection Ears: external ears normal Face/Nose/Sinus: Normal external nose present Face and sinus: normal facial exam Mouth: Yes Normal oral and palatal mucosa present Throat: posterior oropharynx normal Eyes: Conjunctivae: conjunctivae normal Pupils: Equal, round and reactive pupils present EOM: EOMs intact bilaterally Direct Ophthalmoscopy: no photophobia Neck: Neck: normal visual inspection, no lymphadenopathy and no meningeal signs Chest: Chest palpation & inspection: normal inspection of the chest Resp: Effort & Inspection: normal respiratory effort Auscultation: clear to auscultation bilaterally Cardio: Rate: regular rate Rhythm: regular rhythm GI: GI Palp: Yes Soft to palpation Auscultation: normal bowel sounds : General: Yes no CVA tenderness Back/Spine/Pelvis: Back: no CVA tenderness Skin: General skin exam: normal color Rashes: no rashes Neuro: General: patient oriented x3, moves all extremities, no meningeal signs, no focal motor deficits and CN's II-XI intact bilaterally Cranial nerves: Yes Nystagmus not present Speech: normal speech Extrem: General: normal to inspection and no clubbing, cyanosis or edema Psych: Mental Status: mental status grossly normal Affect: normal affect Attitude: cooperative Course Course Emergency Course: Upper respiratory tract symptoms/recently diagnosed influenza a acute on chronic renal failure with an increase of creatinine from 1.15 to 1.4 will give ivf. possibly related to use of NSAIDs Vital Signs Vital signs: Vital Signs Temperature 36.7 C 08/15/24 08:14 Pulse Rate 87 08/15/24 08:14 Respiratory Rate 20 08/15/24 08:14 Blood Pressure 129/91 H 08/15/24 08:14 Pulse Oximetry 97 08/15/24 08:14 Oxygen Delivery Room Air 08/15/24 08:14 Temperature 36.7 C 08/15/24 08:14 Pulse Rate 87 08/15/24 08:14 Respiratory Rate 20 08/15/24 08:14 Blood Pressure 129/91 H 08/15/24 08:14 Pulse Oximetry 97 08/15/24 08:14 Oxygen Delivery Room Air 08/15/24 08:14 MDM - URI/Sore Throat MDM Narrative Medical decision making narrative: upper respiratory infection acute on chronic renal failure Differential Diagnosis Differential diagnosis: Likely upper respiratory infection and viral infection Medical Records Attestation: I reviewed the patient's medical records. Lab Data Attestation: I reviewed the patient's lab results. 08/15/24 08:27 08/15/24 08:27 Labs: Lab Results 08/15/24 08/15/24 Range/Units 08:27 08:30 WBC 3.1 L (4.8-10.8) K/mm3 RBC 4.84 (4.20-5.40) M/mm3 Hgb 13.5 (12.0-15.0) g/dL Hct 42.4 (35.0-49.0) % MCV 87.6 (78.0-102.0) fL MCH 27.9 (27.0-31.0) pg MCHC 31.8 L (32-36) g/dL RDW 13.4 (11.6-14.4) % Plt Count 251 (150-420) K/mm3 MPV 10.8 (9.2-11.8) fl Immature Gran % (Auto) Not Reportable Neut % (Auto) Not Reportable Lymph % (Auto) Not Reportable Walker % (Auto) Not Reportable Eos % (Auto) Not Reportable Baso % (Auto) Not Reportable Lymph # (Auto) Not Reportable Walker # (Auto) Not Reportable Eos # (Auto) Not Reportable Baso # (Auto) Not Reportable Abs Immat Gran (auto) Not Reportable Absolute Neuts (auto) Not Reportable Absolute Nucleated RBC Not Reportable Total Counted 100 Neutrophils % (Manual) 34 L (46-73) % Band Neutrophils % 0 (0-6) % Lymphocytes % (Manual) 52 H (18-44) % Monocytes % (Manual) 3 (3-9) % Eosinophils % (Manual) 1 (1-6) % Basophils % (Manual) 0 (0-1) % Nucleated RBC % Not Reportable Abs Neuts (Manual) 1.05 L (1.7-7.2) K/mm3 Abs Lymphs (Manual) 1.61 (1.1-4.5) K/mm3 Abs Monocytes (Manual) 0.09 L (0.1-0.90) K/mm3 Absolute Eos (Manual) 0.03 (0.02-0.50) K/mm3 Abs Basophils (Manual) 0.00 (0-0.1) K/mm3 Platelet Estimate Adequate (Adequate) Schistocytes Not Reportable Sodium 141 (136-145) mmol/L Potassium 3.5 (3.5-5.1) mmol/L Chloride 103 (98-108) mmol/L Carbon Dioxide 25 (21-32) mmol/L Anion Gap 13 H (4-12) mmol/L BUN 14 (7-18) mg/dL Creatinine 1.42 H (0.55-1.02) mg/dL Estim Creat Clear Calc 49 ml/min Estimated GFR 39 L (59 - ) Glucose 94 (70-99) mg/dL Calculated Osmolality 292 (285-295) mOsm/kg Lactic Acid 1.2 (0.4-2.0) mmol/L Calcium 9.4 (8.5-10.1) mg/dL Total Bilirubin 0.4 (0.00-1.00) mg/dL AST 24 (15-37) U/L ALT 30 (14-59) U/L Alkaline Phosphatase 94 (46-116) U/L Total Protein 7.9 (6.4-8.2) g/dL Albumin 3.9 (3.4-5.0) g/dL Lipase 34 (16-77) U/L Urine Color Light yellow (Yellow) Urine Appearance Clear (Clear) Urine pH 6.0 (5.0-8.0) Ur Specific [place] 1.020 (1.010-1.020) Urine Protein 1+ H (Negative) Urine Glucose (UA) Negative (Negative) Urine Ketones Negative (Negative) Ur Blood (Man) Trace-intact H (Negative) Urine Nitrate Negative (Negative) Urine Bilirubin Negative (Negative) Urine Urobilinogen 0.2 (0.2-1.0) mg/dL Leukocyte Esterase Rfl Negative (Negative) [place]/UL Urine RBC 0-2 (0-2) /hpf Urine WBC 7-9 H (0-3) /hpf Ur Squamous Epith Cells Moderate H (Few) /hpf Urine Bacteria Trace (None) /hpf Discharge Plan Discharge Clinical Impression: Upper respiratory infection Qualifiers: URI type: unspecified URI Qualified Code(s): J06.9 - Acute upper respiratory infection, unspecified Acute on chronic kidney failure Qualifiers: Acute renal failure type: unspecified Chronic kidney disease stage: stage 3 (moderate) Chronic kidney disease stage 3 subtype: stage 3a (GFR 45-59) Qualified Code(s): N17.9 - Acute kidney failure, unspecified Patient Disposition: Home, Self-Care Condition: Stable Instructions: Antibiotic Form, Acute Kidney Injury (DC), Upper Respiratory Infection (ED) Patient Language: Mongolian Prescriptions: No Action atorvastatin 20 mg tablet 20 mg PO DAILY trazodone 50 mg tablet 50 mg PO DAILY omeprazole 40 mg capsule,delayed release(DR/EC) 40 mg PO DAILY norethindrone (contraceptive) 0.35 mg tablet 0.35 mg PO DAILY escitalopram oxalate 10 mg tablet 10 mg PO DAILY metoprolol tartrate 25 mg tablet 12.5 mg PO BID nitrofurantoin monohyd/m-cryst [Macrobid] 100 mg capsule 100 mg PO Q12H 7 Days Qty: 14 0RF Rx Instructions: must administer with a meal/food Follow-up/Referrals: [place],MD Reddy [Primary Care Provider] - Time of Disposition: 10:07
--- OUTSIDE RECORDS SUMMARY | 2024-08-15 08:08 | XMS_ITS | Encounter Summary ---
Author Organization [facility] Address [address] [place] [address] Care Team Providers Care Dragline Operator Helper Name Role Phone Steve Page MD Unavailable Unavailable Kishor Ibarra PA-C Unavailable [phone] Jeyson Moreno MD Unavailable Reddy Coleman MD Primary Care Provider Encounter Details Date Type Department Care Team (Late st Contact Info) Description 08/10/2023 Software Technology Message Enc [facility] [address], [facility] [address] [place] [address] Jacky Diop MD [address] [place] [address] Visit Follow Up Social History Tobacco Use Types Packs/Day Years Used Date Smoking Tobacco: Former Cigarettes Q uit: 1998 Smokeless Tobacco: Never Comments:one pack every 2 mo 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
--- OUTSIDE RECORDS SUMMARY | 2024-08-15 08:09 | XMS_ITS | Clinical Summary ---
Author Organization [facility] Address [address] [place] [address] Care Team Providers Care Telephonic Nurse Name Role Phone Steve Page MD Unavailable Unavailable Kishor Ibarra PA-C Unavailable [phone] Jeyson Moreno MD Unavailable Reddy Coleman [...] (03/14/2023): Added automatically from request for surgery [id number] History of arthroscopy of right shoulder 023 Superior glenoid labrum lesi on of right shoulder, subsequent encounter 05/05/2022 Overview (05/05/2022): Added automatically from request for surgery [id number] Shoulder impingement syndrome, right 01/12/2022 DVT (deep venous thrombosis) ([facility]) 0 11/11/2020 Acquired hallux valgus of right foot 07/29/2020 Hallux valgus (acquired), right foot 05/02/2020 Chronic venous insufficiency 10/31/2018 Varicose veins of right leg with edema 9 Chest pain of uncertain etiology 07/26/2018 Palpitations 07/26/2018 SVT (supraventricular tachycardia) ([facility]/ HCC) 07/26/2018 Former smoker 07/26/2018 Mixed hyperlipidemia 07/26/2018 Migraine 07/26/2018 Varicose veins of both lower extremities with co mplications Encounters Date Type Department Care Team Description 07/05/2024 7:15 PM PRINT FINISHER - 07/05/2024 8:09 PM [facility] Emergency [place] [facility] [address] [facility] [place] [address] Clif Mayberry MD Cough Discharge Disposition: Home [...] on file Legal Sex Female 5:50 PM PRINT FINISHER Gender Identity Not on file Sexual Orientation Not on file 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 Not on file Last Filed Vital Signs Vital Sign Reading Time Taken Comments Blood Pressure 119/87 07/05/2024 7:19 PM PRINT FINISHER Pulse 99 07/05/2024 7:19 PM PRINT FINISHER Temperature 36.8 C (98.2 F) 07/05/2024 7:19 PM PRINT FINISHER Respiratory Rate 16 07/05/2024 7:19 PM PRINT FINISHER Oxygen Saturation 95% 07/05/2024 8:00 PM PRINT FINISHER Inhaled Oxygen Concentration - - Weight 97.5 kg (215 lb) 07/05/2024 7:19 PM PRINT FINISHER Height 182.9 cm (6') 07/05/2024 7:19 PM PRINT FINISHER Body Mass Index 29.16 07/05/2024 7:19 PM PRINT FINISHER Plan of Treatment Health Maintenance Due Date [...] this topic Medical Devices Implanted Type Area Research And Development Specialist Device Identifier Shelf Expiration Date Model / Serial / Lot Suture Makinen, Swivelock Tenodesis, Biocomposite 7x19.1mm - [id number] Implanted:Qty: 1 on 06/03/2022 by Jacky Diop MD at [facility] Makinen Right: Shoulder [employer] [id number] 12/24/2025 AR-1662BCC- 7 / / [id number] Makinen Suture Swivelock Self Punch 24.5mm Biocomposite - [id number] Implanted:Qty: 1 on 06/03/2022 by Jacky Diop MD at [facility] Makinen Right: Shoulder [employer] [id number] 08/24/2025 AR-[id number] / / [id number] Screw Alicia 2.7 Cortical 16 - [id number] Implanted:Qty: 2 on 03/13/2020 by Brad Garcia MD at [facility] Right: Foot [employer] [id number] / / Screw Cortical Depuy 2.7 X 26mm - [id number] Implanted:Qty: 1 on 03/13/2020 by Brad Garcia MD at [facility] Right: Foot [employer] [id number] / / Screw Cortical Depuy 2.7 X 22mm - [id number] Implanted:Qty: 1 on 03/13/2020 by Brad Garcia MD at [facility] Right: Foot [employer] [id number] / / Screw Cortical Depuy 2.7 X 20mm - [id number] Implanted:Qty: 1 on 03/13/2020 by Brad Garcia MD at [facility] Right: Foot [employer] [id number] / / Plate T Timax 2.7mm Screw Mini Fragment 3x2 Hole Bone Nonsterile - [id number] Implanted:Qty: 1 on 03/13/2020 by Brad Garcia MD at [facility] Right: Foot [employer] [id number] / / Explanted Type Area Research And Development Specialist Device Identifier Shelf Expiration Date Model / Serial / Lot Drill Bit Depuy 2.0mm - [id number] Explanted:Qty: 1 on 03/13/2020 at [facility] Right: Foot [employer] [id number] / / K-Wire Threaded Tip 1.6mm - [id number] Explanted:Qty: 2 on 03/13/2020 at [facility] Right: Foot [employer] [id number] / / Procedures Procedure Name Priority Date/Time Associated Diagnosis Comments XR CHEST PORTABLE STAT 07/05/2024 7:5 8 PM PRINT FINISHER MG SCREENING W JAQUAN EMIL DIGI Routine 05/17/2022 3:29 PM PRINT FINISHER Visit for screening mammogram from Last 3 Months or Most Recently Relevant to Health Maintenance Results * XR CHEST PORTABLE (07/05/2024 7:58 PM PRINT FINISHER) Anatomical Region Laterality Modality Chest Radiographic Lisbeth ging 07/05/2024 8:00 PM PRINT FINISHER Impressions 07/05/2024 8:01 PM PRINT FINISHER Impression: No acute findings. Referred By: Interpreted By: Waldemar Sawyer MD, 07/05/2024 8:00 PM Narrative 07/05/2024 8:01 PM PRINT FINISHER [address] [place] [address] Examination: Chest 1 view portable History: Cough DATE/TIME: 07/05/2024 7:58 PM Comparison: 05/03/2024 Technique: AP portable view of the chest was obtained. Findings: Heart size, mediastinal contours and pulmonary vasculature are within normal limits. No pulmonary consolidation, pleural effusion or pneumothorax. No acute osseous abnormality. Procedure Note Waldemar Sawyer MD - 07/05/[address] [place] [address] Examination: Chest 1 view portable History: Cough [...] W JAQUAN EMIL DIGI (05/17/2022 3:29 PM PRINT FINISHER) Anatomical Region Laterality Modality Breast Bilateral Mammography 05/17/2022 5:08 PM PRINT FINISHER Narrative 05/17/2022 5:08 PM PRINT FINISHER Examination: Digital screening mammogram with CAD. Clinical [...] Abraham MD, 05/17/2022 5:08 PM Arvind Arriola [place] MAMMO Final Result from Last 3 Months or Most Recently Relevant to Health Maintenance Insurance [employer] Advance Directives * Full Code (Latest Code Status on File) Date Activated Date Inactivated Comments 11/11/2020 5:47 PM 11/12/2020 8:16 PM * Full Code Date Activated Date Inactivated Comments 11/24/2018 11:44 AM 11/24/2018 4:05 PM Care Teams Telephonic Nurse Relationship Specialty Start Date End Date Reddy Coleman MD [address] [place] [phone] PCP - General FAMILY PRACTICE 08/05/20 Steve Page MD EP Cargo Agent CLINICAL CARDIAC ELECTROPHYSIOLOGY 08/01/18 Kishor Ibarra PA-C [address] [place] [address] Electrophysiology 08/01/18 Jeyson Moreno MD [address] [place] [address] Vascular/Cargo Agent INTERNAL MEDICINE 10/05/18
--- OUTSIDE RECORDS SUMMARY | 2024-08-15 08:09 | XMS_ITS | Clinical Summary ---
Author Organization [facility] Address [address] [place] [address] Care Team Providers Care Net Wpf Developer Name Role Phone Reddy Coleman MD Primary [...] on file Legal Sex Female 7:28 PM MANAGER RADIO Gender Identity Not on file Sexual Orientation Not on file Obstetrics History Last Filed Vital Signs Vital Sign Reading Time Taken Comments Blood Pressure 139/93 06/23/2018 3:56 PM MANAGER RADIO Pulse 113 06/23/2018 3:56 PM MANAGER RADIO Temperature 36.7 C (98.1 F) 06/23/2018 3:56 PM MANAGER RADIO Respiratory Rate 16 06/23/2018 3:56 PM MANAGER RADIO Oxygen Saturation 96% 06/23/2018 3:56 PM MANAGER RADIO Inhaled Oxygen Concentration - - Weight 99.6 [...] patient's age to complete this topic Insurance AddressHealth CHOICE [employer] OPEN ACCESS Care Teams Net Wpf Developer Relationship Specialty Start Date End Date Reddy Coleman MD PCP - General 06/23/18
--- OUTSIDE RECORDS SUMMARY | 2024-08-15 08:09 | XMS_ITS | Encounter Summary ---
Author Organization [facility] Address [address] [place] [address] Care Team Providers Care Payment Rep Name Role Phone Steve Page MD Unavailable Unavailable Kishor Ibarra PA-C Unavailable [phone] Jeyson Moreno MD Unavailable Reddy Coleman MD Primary Care Provider Encounter Details Date Type Department Care Team (Late st Contact Info) Description 10/17/2023 EpiGaN Message Enc [facility] [address] [place] [address] Kori Garza PA [address] [place] [address] Visit Follow Up Social History Tobacco Use Types Packs/Day Years Used Date Smoking Tobacco: Former Cigarettes Q uit: 1998 Smokeless Tobacco: Never Comments:one pack every 2 mo [facility]-second hand smoke Alcohol Use Standard Drinks/Week [...] on file Legal Sex Female 5:50 PM SHOEMAKER CUSTOM Gender Identity Not on file Sexual Orientation Not on file 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 Not [...] Author Status No 11/11/2020 4:34 PM CDT [place] RN Active documented in this encounter Plan of Treatment Not on file documented as of this encounter Visit Diagnoses Not on filedocumented in this encounter Care Teams Payment Rep Relationship Specialty Start Date End Date Reddy Coleman MD [address] [place] [phone] PCP - General FAMILY PRACTICE 08/05/20 Steve Page MD EP Boring Machine Operator Production CLINICAL CARDIAC ELECTROPHYSIOLOGY 08/01/18 Kishor Ibarra PA-C [address] [place] [address] Electrophysiology 08/01/18 Jeyson Moreno MD [address] [place] [phone] Vascular/Boring Machine Operator Production INTERNAL MEDICINE 10/05/18 documented as of this encounter
--- OUTSIDE RECORDS SUMMARY | 2024-08-15 08:09 | XMS_ITS | Referral Summary ---
Author Organization [facility] Address [address] [place] [address] Care Team Providers Care Doormaker Name Role Phone Reddy Coleman MD Primary Care Provider [phone] Allergies Active Allergy Reactions Criticality Noted Date [...] on file Legal Sex Female 7:28 PM SPEECH LANGUAGE PATHOLOGIST ASSISTANT Gender Identity Not on file Sexual Orientation Not on file Last Filed Vital Signs Vital Sign Reading Time Taken Comments Blood Pressure 139/93 06/23/2018 3:56 PM SPEECH LANGUAGE PATHOLOGIST ASSISTANT Pulse 113 06/23/2018 3:56 PM SPEECH LANGUAGE PATHOLOGIST ASSISTANT Temperature 36.7 C (98.1 F) 06/23/2018 3:56 PM SPEECH LANGUAGE PATHOLOGIST ASSISTANT Respiratory Rate 16 06/23/2018 3:56 PM SPEECH LANGUAGE PATHOLOGIST ASSISTANT Oxygen Saturation 96% 06/23/2018 3:56 PM SPEECH LANGUAGE PATHOLOGIST ASSISTANT Inhaled Oxygen Concentration - - Weight 99.6 kg (219 lb 8 oz) 09/08/2023 3:08 PM CDT Height 182.9 cm (6') 09/08/2023 3:08 PM CDT Body Mass Index 29.77 09/08/2023 3:08 PM CDT Plan of Treatment Not on file Insurance [facility] ACCESS CHOICE [employer] OPEN ACCESS Care Teams Doormaker Relationship Specialty Start Date End Date Reddy Coleman MD PCP - General 06/23/18
--- OUTSIDE RECORDS SUMMARY | 2024-08-15 08:09 | XMS_ITS | Encounter Summary ---
Author Organization [facility] Address [facility] [place] [address] Care Team Providers Care Director And Professor Name Role Phone Reddy Coleman MD Primary Care Provider Hernan Gallagher MD Unavailable Unavailable Steve Page MD Unavailable Unavailable Kishor Ibarra PA-C Unavailable [phone] Jeyson Moreno MD Unavailable August Rg MD Primary Care Provider [phone] Reddy Coleman MD Primary Care Provider [phone] Encounter Details Date Type Department Care Team (Late st Contact Info) Description 12/02/2018 Abstract [facility] CONVERSION [address] [place] [address] , Generic Conversion, Social History Tobacco Use [...] on file Legal Sex Female 5:50 PM FLAME BRAZING MACHINE OPERATOR Gender Identity Not on file Sexual Orientation Not on file 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 Not [...] Rule Out 08/05/2020 08/05/2020 08/06/2020 3:30 PM FLAME BRAZING MACHINE OPERATOR COVID-19 Rule Out 02/01/2023 02/01/2023 02/01/2023 5:36 PM CDT documented as of this encounter Care Teams Director And Professor Relationship Specialty Start Date End Date Reddy Coleman MD [address] [place] [phone] PCP - General FAMILY PRACTICE 07/04/18 05/24/19 August Rg MD [address] [place] [phone] PCP - General FAMILY PRACTICE 05/25/19 08/04/20 Reddy Coleman MD [address] [place] [phone] PCP - General FAMILY PRACTICE 08/05/20 Hernan Gallagher MD [address] [place] [phone] INTERVENTIONAL CARDIOLOGY 07/04/18 07/04/19 Steve Page MD [address] [place] [phone] EP Utilities Service Investigator CLINICAL CARDIAC ELECTROPHYSIOLOGY 08/01/18 Kishor Ibarra PA-C [address] [place] [phone] Electrophysiology 08/01/18 Jeyson Moreno MD [address] [place] [phone] Vascular/Utilities Service Investigator INTERNAL MEDICINE 10/05/18 documented as of this encounter
[2024-08-15 08:14] VITALS: BP 129/91; PULSE 87; RESP 20; TEMP 36.7; O2SAT 97
[2024-08-15 08:41] LABS: Hematocrit 42.4 % (35.0-49.0); Hemoglobin 13.5 g/dL (12.0-15.0); Mean Corpuscular HGB Conc 31.8 g/dL (32-36); Mean Corpuscular Hemoglobin 27.9 pg (27.0-31.0); Mean Corpuscular Volume 87.6 fL (78.0-102.0); Mean Platelet Volume 10.8 fl (9.2-11.8); Platelet Count Result 251 K/mm3 (150-420); Red Blood Count 4.84 M/mm3 (4.20-5.40); Red Cell Distribution Width 13.4 % (11.6-14.4); White Blood Count 3.1 K/mm3 (4.8-10.8)
[2024-08-15 08:44] LABS: Add Urine Microscopic? YES; Appearance Urine Clear (Clear); Bilirubin Urine Negative (Negative); Blood Urine Trace-intact (Negative); Color Urine Light Yellow (Yellow); Glucose Urine UA Negative (Negative); Ketones Urine Negative (Negative); Leukocyte Esterase Ur Negative LEU/UL (Negative); Nitrate Urine Negative (Negative); Protein Urine 1+ (Negative); Urobilinogen Urine 0.2 mg/dL (0.2-1.0)
[2024-08-15 08:50] LABS: RBC Urine 0-2 /hpf (0-2); Squamous Epithelial Cell Urine Moderate /hpf (Few)
--- OUTSIDE RECORDS SUMMARY | 2024-08-15 08:50 | XMS_ITS | Encounter Summary ---
Author Organization [facility] Address [facility] [place] [address] Care Team Providers Care Comparison Shopper Name Role Phone Reddy Coleman MD Primary Care Provider [phone] Hernan Gallagher MD Unavailable Unavailable Steve Page MD Unavailable Unavailable Kishor Ibarra PA-C Unavailable [phone] Jeyson Moreno MD Unavailable August Rg MD Primary Care Provider [phone] Reddy Coleman MD Primary Care Provider [phone] Encounter Details Date Type Department Care Team (Late st Contact Info) Description 12/02/2018 Abstract SFL CONVERSION [address] [place] [address] , Generic Conversion, Social History Tobacco Use [...] on file Legal Sex Female 5:50 PM FLORAL ARRANGER Gender Identity Not on file Sexual Orientation Not on file 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 Not [...] Rule Out 08/05/2020 08/05/2020 08/06/2020 3:30 PM FLORAL ARRANGER COVID-19 Rule Out 02/01/2023 02/01/2023 02/01/2023 5:36 PM CDT documented as of this encounter Care Teams Comparison Shopper Relationship Specialty Start Date End Date Reddy Coleman MD [address] [place] [phone] PCP - General FAMILY PRACTICE 07/04/18 05/24/19 August Rg MD [address] [place] [phone] PCP - General FAMILY PRACTICE 05/25/19 08/04/20 Reddy Coleman MD [address] [place] [phone] PCP - General FAMILY PRACTICE 08/05/20 Hernan Gallagher MD [address] [place] [phone] INTERVENTIONAL CARDIOLOGY 07/04/18 07/04/19 Steve Page MD [address] [place] [phone] EP Energy Conservation Engineer CLINICAL CARDIAC ELECTROPHYSIOLOGY 08/01/18 Kishor Ibarra PA-C [address] [place] [phone] Electrophysiology 08/01/18 Jeyson Moreno MD [address] [place] [phone] Vascular/Energy Conservation Engineer INTERNAL MEDICINE 10/05/18 documented as of this encounter
--- OUTSIDE RECORDS SUMMARY | 2024-08-15 08:50 | XMS_ITS | Clinical Summary ---
Author Organization [facility] Address [address] [place] [address] Care Team Providers Care Property Management Specialist Name Role Phone Steve Page MD Unavailable Unavailable Kishor Ibarra PA-C Unavailable [phone] Jeyson Moreno MD Unavailable Reddy Coleman [...] (03/14/2023): Added automatically from request for surgery [id number] History of arthroscopy of right shoulder 023 Superior glenoid labrum lesi on of right shoulder, subsequent encounter 05/05/2022 Overview (05/05/2022): Added automatically from request for surgery [id number] Shoulder impingement syndrome, right 01/12/2022 DVT (deep venous thrombosis) ([facility]) 0 11/11/2020 Acquired hallux valgus of right foot 07/29/2020 Hallux valgus (acquired), right foot 05/02/2020 Chronic venous insufficiency 10/31/2018 Varicose veins of right leg with edema 9 Chest pain of uncertain etiology 07/26/2018 Palpitations 07/26/2018 SVT (supraventricular tachycardia) ([facility]/ HCC) 07/26/2018 Former smoker 07/26/2018 Mixed hyperlipidemia 07/26/2018 Migraine 07/26/2018 Varicose veins of both lower extremities with co mplications Encounters Date Type Department Care Team Description 07/05/2024 7:15 PM CONSULTING GROUP ANALYST - 07/05/2024 8:09 PM [facility] Emergency [place] [facility] [address] [facility] [place] [address] Clif Mayberry MD Cough Discharge Disposition: Home [...] on file Legal Sex Female 5:50 PM CONSULTING GROUP ANALYST Gender Identity Not on file Sexual Orientation Not on file 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 Not on file Last Filed Vital Signs Vital Sign Reading Time Taken Comments Blood Pressure 119/87 07/05/2024 7:19 PM CONSULTING GROUP ANALYST Pulse 99 07/05/2024 7:19 PM CONSULTING GROUP ANALYST Temperature 36.8 C (98.2 F) 07/05/2024 7:19 PM CONSULTING GROUP ANALYST Respiratory Rate 16 07/05/2024 7:19 PM CONSULTING GROUP ANALYST Oxygen Saturation 95% 07/05/2024 8:00 PM CONSULTING GROUP ANALYST Inhaled Oxygen Concentration - - Weight 97.5 kg (215 lb) 07/05/2024 7:19 PM CONSULTING GROUP ANALYST Height 182.9 cm (6') 07/05/2024 7:19 PM CONSULTING GROUP ANALYST Body Mass Index 29.16 07/05/2024 7:19 PM CONSULTING GROUP ANALYST Plan of Treatment Health Maintenance Due Date [...] this topic Medical Devices Implanted Type Area Equipment Operator Device Identifier Shelf Expiration Date Model / Serial / Lot Suture Garrison, Swivelock Tenodesis, Biocomposite 7x19.1mm - [id number] Implanted:Qty: 1 on 06/03/2022 by Jacky Diop MD at [facility] [place] Right: Shoulder [employer] [id number] 12/24/2025 AR-1662BCC- 7 / / [id number] Garrison Suture Swivelock Self Punch 24.5mm Biocomposite - [id number] Implanted:Qty: 1 on 06/03/2022 by Jacky Diop MD at [facility] [place] Right: Shoulder [employer] [id number] 08/24/2025 AR-2324BCM / / [id number] Screw Alicia 2.7 Cortical 16 - [id number] Implanted:Qty: 2 on 03/13/2020 by Brad Garcia MD at [facility] Right: Foot [employer] [id number] / / Screw Cortical Depuy 2.7 X 26mm - [id number] Implanted:Qty: 1 on 03/13/2020 by Brad Garcia MD at [facility] Right: Foot [employer] [id number] / / Screw Cortical Depuy 2.7 X 22mm - [id number] Implanted:Qty: 1 on 03/13/2020 by Brad Garcia MD at [facility] Right: Foot [employer] [id number] / / Screw Cortical Depuy 2.7 X 20mm - [id number] Implanted:Qty: 1 on 03/13/2020 by Brad Garcia MD at [facility] Right: Foot [employer] [id number] / / Plate T Timax 2.7mm Screw Mini Fragment 3x2 Hole Bone Nonsterile - [id number] Implanted:Qty: 1 on 03/13/2020 by Brad Garcia MD at [facility] Right: Foot [employer] [id number] / / Explanted Type Area Equipment Operator Device Identifier Shelf Expiration Date Model / Serial / Lot Drill Bit Depuy 2.0mm - [id number] Explanted:Qty: 1 on 03/13/2020 at [facility] Right: Foot [employer] [id number] / / K-Wire Threaded Tip 1.6mm - [id number] Explanted:Qty: 2 on 03/13/2020 at [facility] Right: Foot [employer] [id number] / / Procedures Procedure Name Priority Date/Time Associated Diagnosis Comments XR CHEST PORTABLE STAT 07/05/2024 7:5 8 PM CONSULTING GROUP ANALYST MG SCREENING W JAQUAN EMIL DIGI Routine 05/17/2022 3:29 PM CONSULTING GROUP ANALYST Visit for screening mammogram from Last 3 Months or Most Recently Relevant to Health Maintenance Results * XR CHEST PORTABLE (07/05/2024 7:58 PM CONSULTING GROUP ANALYST) Anatomical Region Laterality Modality Chest Radiographic Lisbteh ging 07/05/2024 8:00 PM CONSULTING GROUP ANALYST Impressions 07/05/2024 8:01 PM CONSULTING GROUP ANALYST Impression: No acute findings. Referred By: Interpreted By: Waldemar Sawyer MD, 07/05/2024 8:00 PM Narrative 07/05/2024 8:01 PM CONSULTING GROUP ANALYST [address] [place] [address] Examination: Chest 1 view portable History: Cough DATE/TIME: 07/05/2024 7:58 PM Comparison: 05/03/2024 Technique: AP portable view of the chest was obtained. Findings: Heart size, mediastinal contours and pulmonary vasculature are within normal limits. No pulmonary consolidation, pleural effusion or pneumothorax. No acute osseous abnormality. Procedure Note Waldemar Sawyer MD - 07/05/[address] [place] [address] Examination: Chest 1 view portable History: Cough [...] W JAQUAN EMIL DIGI (05/17/2022 3:29 PM CONSULTING GROUP ANALYST) Anatomical Region Laterality Modality Breast Bilateral Mammography 05/17/2022 5:08 PM CONSULTING GROUP ANALYST Narrative 05/17/2022 5:08 PM CONSULTING GROUP ANALYST Examination: Digital screening mammogram with CAD. Clinical [...] Abraham MD, 05/17/2022 5:08 PM Arvind Arriola [place] MAMMO Final Result from Last 3 Months or Most Recently Relevant to Health Maintenance Insurance [employer] Advance Directives * Full Code (Latest Code Status on File) Date Activated Date Inactivated Comments 11/11/2020 5:47 PM 11/12/2020 8:16 PM * Full Code Date Activated Date Inactivated Comments 11/24/2018 11:44 AM 11/24/2018 4:05 PM Care Teams Property Management Specialist Relationship Specialty Start Date End Date Reddy Coleman MD [address] [place] [phone] PCP - General FAMILY PRACTICE 08/05/20 Steve Page MD EP Irrigation Equipment Mechanic CLINICAL CARDIAC ELECTROPHYSIOLOGY 08/01/18 Kishor Ibarra PA-C [address] [place] [address] Electrophysiology 08/01/18 Jeyson Moreno MD [address] [place] [address] Vascular/Irrigation Equipment Mechanic INTERNAL MEDICINE 10/05/18
--- OUTSIDE RECORDS SUMMARY | 2024-08-15 08:50 | XMS_ITS | Referral Summary ---
Author Organization [facility] Address [address] [place] [address] Care Team Providers Care Collar Sewer Name Role Phone Reddy Coleman MD Primary [...] on file Legal Sex Female 7:28 PM BALANCE RECESSER Gender Identity Not on file Sexual Orientation Not on file Last Filed Vital Signs Vital Sign Reading Time Taken Comments Blood Pressure 139/93 06/23/2018 3:56 PM BALANCE RECESSER Pulse 113 06/23/2018 3:56 PM BALANCE RECESSER Temperature 36.7 C (98.1 F) 06/23/2018 3:56 PM BALANCE RECESSER Respiratory Rate 16 06/23/2018 3:56 PM BALANCE RECESSER Oxygen Saturation 96% 06/23/2018 3:56 PM BALANCE RECESSER Inhaled Oxygen Concentration - - Weight 99.6 kg (219 lb 8 oz) 09/08/2023 3:08 PM CDT Height 182.9 cm (6') 09/08/2023 3:08 PM CDT Body Mass Index 29.77 09/08/2023 3:08 PM CDT Plan of Treatment Not on file Insurance [facility] ACCESS CHOICE Particle Code OPEN ACCESS Care Teams Collar Sewer Relationship Specialty Start Date End Date Reddy Coleman MD PCP - General 06/23/18
--- OUTSIDE RECORDS SUMMARY | 2024-08-15 08:50 | XMS_ITS | Encounter Summary ---
Author Organization [facility] Address [address] [place] [address] Care Team Providers Care Staff Radiographer Name Role Phone Steve Page MD Unavailable Unavailable Kishor Ibarra PA-C Unavailable [phone] Jeyson Moreno MD Unavailable Reddy Coleman MD Primary Care Provider Encounter Details Date Type Department Care Team (Late st Contact Info) Description 08/10/2023 K[place]off Message Enc [facility] [address], [facility] 1 [place] [address] Jacky Diop MD [address] [place] [address] Visit Follow Up Social History Tobacco Use Types Packs/Day Years Used Date Smoking Tobacco: Former Cigarettes Q uit: 1998 Smokeless Tobacco: Never Comments:one pack every 2 mo [facility]-second hand smoke Alcohol Use Standard Drinks/Week [...] on file Legal Sex Female 5:50 PM BOAT DISPATCHER Gender Identity Not on file Sexual Orientation Not on file 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 Not [...] Author Status No 11/11/2020 4:34 PM CDT Jewesl Park RN Active * Because of a [...] on filedocumented in this encounter Care Teams Staff Radiographer Relationship Specialty Start Date End Date Reddy Coleman MD [address] [place] [phone] PCP - General FAMILY PRACTICE 08/05/20 Steve Page MD EP Anaesthetic Technician CLINICAL CARDIAC ELECTROPHYSIOLOGY 08/01/18 Kishor Ibarra PA-C [address] [place] [address] Electrophysiology 08/01/18 Jeyson Moreno MD [address] [place] [phone] Vascular/Anaesthetic Technician INTERNAL MEDICINE 10/05/18 documented as of this encounter
--- OUTSIDE RECORDS SUMMARY | 2024-08-15 08:50 | XMS_ITS | Encounter Summary ---
Author Organization [facility] Address [address] [place] [address] Care Team Providers Care Brush Polisher Name Role Phone Steve Page MD Unavailable Unavailable Kishor Ibarra PA-C Unavailable [phone] Jeyson Moreno MD Unavailable Reddy Coleman MD Primary Care Provider Encounter Details Date Type Department Care Team (Late st Contact Info) Description 10/17/2023 [place] Message Enc [facility] [address] 1 [place] [address] Kori Garza PA [address] [place] [address] Visit Follow Up Social History Tobacco Use Types Packs/Day Years Used Date Smoking Tobacco: Former Cigarettes Q uit: 1998 Smokeless Tobacco: Never Comments:one pack every 2 mo [facility]-second hand smoke Alcohol Use Standard Drinks/Week [...] on file Legal Sex Female 5:50 PM SENIOR MANAGING DIRECTOR Gender Identity Not on file Sexual Orientation Not on file 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
[2024-08-15 08:51] LABS: Bacteria Urine Trace /hpf
--- OUTSIDE RECORDS SUMMARY | 2024-08-15 08:51 | XMS_ITS | Clinical Summary ---
Author Organization [facility] Address [address] [place] [address] Care Team Providers Care Power System Engineer Name Role Phone Reddy Coleman MD Primary [...] on file Legal Sex Female 7:28 PM PLATE FILLER Gender Identity Not on file Sexual Orientation Not on file Obstetrics History Last Filed Vital Signs Vital Sign Reading Time Taken Comments Blood Pressure 139/93 06/23/2018 3:56 PM PLATE FILLER Pulse 113 06/23/2018 3:56 PM PLATE FILLER Temperature 36.7 C (98.1 F) 06/23/2018 3:56 PM PLATE FILLER Respiratory Rate 16 06/23/2018 3:56 PM PLATE FILLER Oxygen Saturation 96% 06/23/2018 3:56 PM PLATE FILLER Inhaled Oxygen Concentration - - Weight 99.6 [...] patient's age to complete this topic Insurance [employer] CHOICE [employer] OPEN ACCESS Care Teams Power System Engineer Relationship Specialty Start Date End Date Reddy Coleman MD PCP - General 06/23/18
[2024-08-15 09:02] LABS: Lactic Acid Reflex 1.2 mmol/L (0.4-2.0)
[2024-08-15 09:12] LABS: Alanine Aminotransferase 30 U/L (14-59); Albumin Level 3.9 g/dL (3.4-5.0); Alkaline Phosphatase 94 U/L (46-116); Anion Gap 13 mmol/L (4-12); Aspartate Amino Transferase 24 U/L (15-37); Band Neutrophils Percent 0 % (0-6); Basophils Percent Manual 0 % (0-1); Bilirubin,Total 0.4 mg/dL (0.00-1.00); Blood Urea Nitrogen 14 mg/dL (7-18); Calcium 9.4 mg/dL (8.5-10.1); Carbon Dioxide 25 mmol/L (21-32); Chloride 103 mmol/L (98-108); Eosinophils Absolute Manual 0.03 K/mm3 (0.02-0.50); Eosinophils Percent Manual 1 % (1-6); Estimated CRCL calculation 49 ml/min; Estimated Glomerular Filt Rate 39; Glucose 94 mg/dL (70-99); Lipase 34 U/L (16-77); Lymphocytes Absolute Manual 1.61 K/mm3 (1.1-4.5); Lymphocytes Percent Manual 52 % (18-44); Monocytes Absolute Manual 0.09 K/mm3 (0.1-0.90); Monocytes Percent Manual 3 % (3-9); Neutrophils Absolute Manual 1.05 K/mm3 (1.7-7.2); Neutrophils Percent Manual 34 % (46-73); Osmolality Calculated 292 mOsm/kg (285-295); Platelet Estimate Adequate (Adequate); Potassium 3.5 mmol/L (3.5-5.1); Sodium 141 mmol/L (136-145); Total Cells Counted 100; Total Protein 7.9 g/dL (6.4-8.2)
[2024-08-15] MEDS: LACTATED RINGERS 1,000 ML 999 ML IV CONT (09:39)
[2024-08-15 10:41] VITALS: BP 123/82; PULSE 74; RESP 18; TEMP 36.4; O2SAT 99
== END 2024-08-15 10:53 | disposition home or self-care (01) ==
PROVIDERS: Emergency Provider Internal Medicine Critical Care Medicine; PCP Family Medicine
DX: J06.9 Acute upper respiratory infection, unspecified (principal); N17.9 Acute kidney failure, unspecified; E78.5 Hyperlipidemia, unspecified
CPT/HCPCS: 36415; 71045; 80053; 81001; 83605; 83690; 85025; 96360; 99283; J7120

== ENCOUNTER 2024-11-05 08:18 | Day surgery (SDC) | payer OTHER, SELFPAY ==
[2024-10-31 09:05] VITALS: BMI 25.0
--- OUTSIDE RECORDS SUMMARY | 2024-11-05 08:21 | XMS_ITS | Referral Summary ---
Author Organization [facility] Address [address] [place] [address] Care Team Providers Care Clinical Medical Transcriptionist Name Role Phone Reddy Coleman MD Primary Care Provider [phone] Allergies Active Allergy Reactions Criticality Noted Date [...] on file Legal Sex Female 7:28 PM INSURANCE HEALTHCARE CONSULTANT Gender Identity Not on file Sexual Orientation Not on file Last Filed Vital Signs Vital Sign Reading Time Taken Comments Blood Pressure 139/93 06/23/2018 3:56 PM INSURANCE HEALTHCARE CONSULTANT Pulse 113 06/23/2018 3:56 PM INSURANCE HEALTHCARE CONSULTANT Temperature 36.7 C (98.1 F) 06/23/2018 3:56 PM INSURANCE HEALTHCARE CONSULTANT Respiratory Rate 16 06/23/2018 3:56 PM INSURANCE HEALTHCARE CONSULTANT Oxygen Saturation 96% 06/23/2018 3:56 PM INSURANCE HEALTHCARE CONSULTANT Inhaled Oxygen Concentration - - Weight 99.6 kg (219 lb 8 oz) 09/08/2023 3:08 PM CDT Height 182.9 cm (6') 09/08/2023 3:08 PM CDT Body Mass Index 29.77 09/08/2023 3:08 PM CDT Plan of Treatment Not on file Insurance [facility] ACCESS CHOICE [employer] OPEN ACCESS Care Teams Clinical Medical Transcriptionist Relationship Specialty Start Date End Date Reddy Coleman MD PCP - General 06/23/18
--- OUTSIDE RECORDS SUMMARY | 2024-11-05 08:21 | XMS_ITS | Clinical Summary ---
Author Organization [facility] Address [address] [place] [address] Care Team Providers Care Oil Field Pipeline Supervisor Name Role Phone Reddy Coleman MD Primary [...] on file Legal Sex Female 7:28 PM TRANSPORTATION MAINTENANCE SPECIALIST Gender Identity Not on file Sexual Orientation Not on file Obstetrics History Last Filed Vital Signs Vital Sign Reading Time Taken Comments Blood Pressure 139/93 06/23/2018 3:56 PM TRANSPORTATION MAINTENANCE SPECIALIST Pulse 113 06/23/2018 3:56 PM TRANSPORTATION MAINTENANCE SPECIALIST Temperature 36.7 C (98.1 F) 06/23/2018 3:56 PM TRANSPORTATION MAINTENANCE SPECIALIST Respiratory Rate 16 06/23/2018 3:56 PM TRANSPORTATION MAINTENANCE SPECIALIST Oxygen Saturation 96% 06/23/2018 3:56 PM TRANSPORTATION MAINTENANCE SPECIALIST Inhaled Oxygen Concentration - - Weight 99.6 [...] 2023-2 5 season) 2024 11/09/2022 Influenza Vaccine (Season Ended) 2025 Pneumococcal vaccine <65 Aged Out No longer eligible based on patient's age to complete this topic Insurance [employer] CHOICE [employer] OPEN ACCESS Care Teams Oil Field Pipeline Supervisor Relationship Specialty Start Date End Date Reddy Coleman MD PCP - General 06/23/18
[2024-11-05 08:48] VITALS: BP 110/78; PULSE 79; RESP 19; TEMP 36.2; O2SAT 99; BMI 23.9
[2024-11-05 08:52] LABS: BEDSIDEPREGUCG Negative (Negative)
--- NOTE | 2024-11-05 08:59 | P.PNAN_ITS ---
Anes - Initial Pre Proc Eval Procedure: Operation Date: 11/05/24 10:30 Proposed Procedures p Esophagogastroduodenoscopy & Colonoscopy - Marlon Herzog MD Date/Time: 11/05/24 08:59 Surgeon: Marlon Herzog MD Pre Op Diagnosis: Dysphagia, unspecified Patient Data Age: 49 Gender: F Height: 1.83 m Weight: 80 kg Last Vital Signs Temp 36.2 C L 11/05/24 08:48 Pulse 79 11/05/24 08:48 Resp 19 11/05/24 08:48 BP 110/78 11/05/24 08:48 Pulse Ox 99 11/05/24 08:48 O2 Del Method Room Air 11/05/24 08:48 Allergies Allergy/AdvReac Type Severity Reaction Status Date / Time bacitracin (From Neosporin Allergy Mild Rash Verified 11/05/24 08:46 ([id number])) codeine Allergy Mild Rash Verified 11/05/24 08:46 neomycin (From Neosporin Allergy Mild Rash Verified 11/05/24 08:46 ([id number]-[id number])) polymyxin B (From Neosporin Allergy Mild Rash Verified 11/05/24 08:46 ([id number])) Sulfa (Sulfonamide Allergy Mild Rash Verified 11/05/24 08:46 Antibiotics) Home Medications ?Medication ?Instructions ?Recorded ?Confirmed ?Type atorvastatin 20 mg tablet 20 mg PO DAILY 09/23/22 11/05/24 History metoprolol tartrate 25 mg tablet 12.5 mg PO BID 09/23/22 11/05/24 History norethindrone (contraceptive) 0.35 0.35 mg PO DAILY 09/23/22 11/05/24 History mg tablet omeprazole 40 mg capsule,delayed 40 mg PO DAILY 09/23/22 11/05/24 History release trazodone 50 mg tablet 50 mg PO DAILY 09/23/22 11/05/24 History duloxetine 20 mg capsule,delayed 40 mg PO DAILY 10/16/24 11/05/24 History release famotidine 40 mg tablet 40 mg PO DAILY 10/16/24 11/05/24 History ibuprofen 800 mg tablet 800 mg PO TID PRN pain 10/16/24 11/05/24 History metformin 500 mg tablet 500 mg PO DAILY 10/16/24 11/05/24 History tramadol 50 mg tablet 50 mg PO Q6H PRN pain 10/16/24 10/31/24 History Laboratory Tests 11/05/24 08:50 POC Urine HCG, Qual Negative (Negative) Patient hx anesthesia problems: none Family hx anesthesia problems: none Results Review: All pre-operative results and documents have been reviewed as part of the pre- operative evaluation. [facility] Past Medical History Medical History (Updated 11/05/24 @ 09:02 by Steve Baldwin MD) HEDY (obstructive sleep apnea) SVT (supraventricular tachycardia) Diabetes Dysphagia HLD (hyperlipidemia) Depression Surgical History Surgical History (Updated 11/05/24 @ 08:59 by Steve Baldwin MD) H/O cardiac radiofrequency ablation Social History Social History Smoking status: Former smoker Tobacco type: cigarettes Substance use type: does not use Living arrangements: with family Spiritual care concerns: No Anes - Eval Final PreProcedure Day of Procedure 11/05/24 08:59 Patient weight: normal Heart: regular rate and rhythm Lungs: clear to auscultation Airway: Mallampati scale class II Neurological: alert and oriented Last oral intake: >/= 8 hours ASA classification: III Emergent: no Anesthetic plan: proceed Anesthesia type and monitoring: general GIVS and standard monitoring Results Review: All pre-operative results and documents have been reviewed as part of the pre- operative evaluation. Informed Consent: The patient's anesthetic plan and its attendant risks and benefits were disc ussed with the patient/family/POA. Questions were solicited and answers provided to the satisfaction of the patient/family/POA.
[2024-11-05] MEDS: LACTATED RINGERS 1,000 ML 150 ML IV CONT (09:04)
[2024-11-05 09:09] LABS: Glucose Point of Care 89 mg/dl (65-105)
--- NOTE | 2024-11-05 09:12 | WPDHPUPDATE1 ---
History and Physical Update Update Date/Time: 11/05/24 09:12 History and Physical has been reviewed, including an updated exam of the patient. There are NO changes in the patient's condition. Risks, benefits, and alternatives have been discussed and questions answered. Patient agrees to proceed with procedure.
--- NOTE | 2024-11-05 09:19 | SUR.OPER ---
EGD: [id number] Colon: [id number]
[2024-11-05 09:36] VITALS: BP 92/65; PULSE 73; RESP 16; O2SAT 98
[2024-11-05 09:46] VITALS: BP 101/72; PULSE 69; RESP 15; O2SAT 97
[2024-11-05 09:56] VITALS: BP 101/72; PULSE 78; RESP 19; O2SAT 100
[2024-11-05 10:06] VITALS: BP 108/78; PULSE 70; RESP 18; O2SAT 96
[2024-11-05 10:16] VITALS: BP 101/65; PULSE 68; RESP 18; O2SAT 98
== END 2024-11-05 10:30 | disposition home or self-care (01) ==
PROVIDERS: Anesthesiology; PCP Family Medicine; Referring Provider Nurse Practitioner Family; Visit Provider Internal Medicine Gastroenterology
PROC: 0DJ08ZZ Inspection of Upper Intestinal Tract, Via Natural or Artificial Opening Endoscopic (ICD-10-PCS; CPT 45378; principal; 2024-11-05 10:30)
DX: Z12.11 Encounter for screening for malignant neoplasm of colon (principal); D12.3 Benign neoplasm of transverse colon; K64.8 Other hemorrhoids; Z80.0 Family history of malignant neoplasm of digestive organs; K29.70 Gastritis, unspecified, without bleeding; K21.9 Gastro-esophageal reflux disease without esophagitis; R13.10 Dysphagia, unspecified; Z87.891 Personal history of nicotine dependence
CPT/HCPCS: 45385; 43239; 82948; 88305; J2003; J2704; J7120

== ENCOUNTER 2024-12-18 07:49 | Outpatient (CLI) | payer OTHER, SELFPAY ==
--- NOTE | ~2024-12-18 | NM_ITS ---
EXAM: NM gastric emptying study DATE: 12/18/2024 12:58 INDICATION: Epigastric pain TECHNIQUE: A gastric emptying study was performed using the methodology of Julio TRIPP, et al. J Nucl Med 2007; 48:568-572. The patient was given a meal consisting of 2 scrambled eggs labeled with 1.059 mCi Tc-99m sulfur colloid, 2 slices of toast, two packages of jam, and approximately 120 mL of water . Simultaneous anterior and posterior 1-min images of the abdomen were obtained with the patient supi ne at multiple time points over a total period of 4 hours. The geometric mean of anterior and posteri or views was determined, and the percentage retention was calculated for each time point. COMPARISON: None. FINDINGS: Gastric retention of the radiotracer-labeled meal was 93%, 55%, and 42% at the 1-hour, 2-hour, and 4- hour time points, respectively. With this technique, apparent rapid gastric emptying is suggested by <30% gastric retention at 1 hour. Delayed gastric emptying is defined by gastric retention of >90% at 1 hour, >60% retention at 2 hours, or >10% retention at 4 hours. IMPRESSION: 1. Delayed gastric emptying. Reviewed, dictated and finalized at location A.
== END 2024-12-18 07:50 | disposition home or self-care (01) ==
PROVIDERS: PCP Family Medicine; Visit Provider Nurse Practitioner Family
DX: K21.9 Gastro-esophageal reflux disease without esophagitis (principal); R63.4 Abnormal weight loss; R68.81 Early satiety; K30 Functional dyspepsia
CPT/HCPCS: 78264; A9541

== ENCOUNTER 2025-01-24 13:21 | Emergency (ER) | payer OTHER, SELFPAY ==
--- NOTE | ~2025-01-24 | CT_ITS ---
EXAMINATION: CT brain wo con DATE: 01/24/2025 14:05 INDICATION: Dizziness. Visual changes. TECHNIQUE: Computed tomography (CT) of the head was performed without intravenous contrast. Sagittal and coronal reconstructions were performed. The mA was adjusted according to patient size. Iterative reconstruction technique was employed. The dose-length product was 681.00 mGy-cm. COMPARISON: None FINDINGS: No acute intracranial hemorrhage, acute infarction or abnormal extra axial fluid collection. Ventricl es are normal and symmetric. No mass/mass effect. Small left mastoid effusion. The orbits and paranas al sinuses are normal. Right mastoid air cells and bilateral middle ear cavities are clear. IMPRESSION: 1. Small left mastoid effusion. Otherwise unremarkable head CT with normal brain.. Reviewed, dictated and finalized at location A. IMPRESSION: 1. Small left mastoid effusion. Otherwise unremarkable head CT with normal brai n..
--- OUTSIDE RECORDS SUMMARY | 2025-01-24 13:24 | XMS_ITS | Clinical Summary ---
Author Organization [facility] Address 1 [place] [address] Care Team Providers Care Hearing Officer Name Role Phone Reddy Coleman MD Primary [...] on file Legal Sex Female 7:28 PM DESTINATION SIGN REPAIRER Gender Identity Not on file Sexual Orientation Not on file Obstetrics History Last Filed Vital Signs Vital Sign Reading Time Taken Comments Blood Pressure 139/93 06/23/2018 3:56 PM DESTINATION SIGN REPAIRER Pulse 113 06/23/2018 3:56 PM DESTINATION SIGN REPAIRER Temperature 36.7 C (98.1 F) 06/23/2018 3:56 PM DESTINATION SIGN REPAIRER Respiratory Rate 16 06/23/2018 3:56 PM DESTINATION SIGN REPAIRER Oxygen Saturation 96% 06/23/2018 3:56 PM DESTINATION SIGN REPAIRER Inhaled Oxygen Concentration - - Weight 99.6 [...] 5 season) 2024 11/09/2022 Influenza Vaccine (#1) 2025 Pneumococcal vaccine <65 Aged Out No longer eligible based on patient's age to complete this topic Insurance [employer] OPEN ACCESS Care Teams Hearing Officer Relationship Specialty Start Date End Date Reddy Coleman MD PCP - General 06/23/18
--- OUTSIDE RECORDS SUMMARY | 2025-01-24 13:24 | XMS_ITS | Referral Summary ---
Author Organization [facility] Address 1 [place] [address] Care Team Providers Care Children'S Literature Professor Name Role Phone Reddy Coleman MD Primary Care Provider [phone] Allergies Active Allergy Reactions Criticality Noted Date [...] on file Legal Sex Female 7:28 PM DISPATCHER MAINTENANCE Gender Identity Not on file Sexual Orientation Not on file Last Filed Vital Signs Vital Sign Reading Time Taken Comments Blood Pressure 139/93 06/23/2018 3:56 PM DISPATCHER MAINTENANCE Pulse 113 06/23/2018 3:56 PM DISPATCHER MAINTENANCE Temperature 36.7 C (98.1 F) 06/23/2018 3:56 PM DISPATCHER MAINTENANCE Respiratory Rate 16 06/23/2018 3:56 PM DISPATCHER MAINTENANCE Oxygen Saturation 96% 06/23/2018 3:56 PM DISPATCHER MAINTENANCE Inhaled Oxygen Concentration - - Weight 99.6 kg (219 lb 8 oz) 09/08/2023 3:08 PM CDT Height 182.9 cm (6') 09/08/2023 3:08 PM CDT Body Mass Index 29.77 09/08/2023 3:08 PM CDT Plan of Treatment Not on file Insurance [facility] ACCESS CHOICE [employer] OPEN ACCESS Care Teams Children'S Literature Professor Relationship Specialty Start Date End Date Reddy Coleman MD PCP - General 06/23/18
--- OUTSIDE RECORDS SUMMARY | 2025-01-24 13:24 | XMS_ITS | Encounter Summary ---
Author Organization [facility] Address [address] [place] [address] Care Team Providers Care Geriatric Personal Care Aide Name Role Phone Steve Pgae MD Unavailable Unavailable Kishor Ibarra PA-C Unavailable [phone] Jeyson Moreno MD Unavailable Reddy Coleman MD Primary Care Provider Encounter Details Date Type Department Care Team (Late st Contact Info) Description 08/10/2023 [employer] Message Enc [facility] [address], [facility] 1 [place] [address] Jacky Diop MD [address] [place] [address] Visit Follow Up Social History Tobacco Use Types Packs/Day Years Used Date Smoking Tobacco: Former Cigarettes Q uit: 1998 Smokeless Tobacco: Never Comments:one pack every 2 mo [facility]-second hand smoke Alcohol Use Standard Drinks/Week Comments No 0 (1 standard drink = 0.6 oz pur e alcohol) AUDIT-C Answer Date Recorded Frequency of Alcohol Consumption Never 10/09/2018 Average Number of Drinks Not on file 019 Frequency of Binge Drinking Not on file 09/25 Comments No Sex and Gender Information Value Date Recorded Sex Assigned at Female 08/24/2024 4:29 PM FITTING SUPERVISOR Legal Sex Female 5:12 AM FITTING SUPERVISOR Gender Identity Not on file Sexual Orientation Not on file 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
--- OUTSIDE RECORDS SUMMARY | 2025-01-24 13:24 | XMS_ITS | Clinical Summary ---
Author Organization [facility] Address [address] [place] [address] Care Team Providers Care Sanitary Aide Name Role Phone Steve Page MD Unavailable Unavailable Kishor Ibarra PA-C Unavailable [phone] Jeyson Moreno MD Unavailable Reddy Coleman [...] (03/14/2023): Added automatically from request for surgery [id number] History of arthroscopy of right shoulder 023 Superior glenoid labrum lesi on of right shoulder, subsequent encounter 05/05/2022 Overview (05/05/2022): Added automatically from request for surgery [id number] Shoulder impingement syndrome, right 01/12/2022 DVT (deep venous thrombosis) ([facility]) 0 11/11/2020 Acquired hallux valgus of right foot 07/29/2020 Hallux valgus (acquired), right foot 05/02/2020 Chronic venous insufficiency 10/31/2018 Varicose veins of right leg with edema 9 Chest pain of uncertain etiology 07/26/2018 Palpitations 07/26/2018 SVT (supraventricular tachycardia) ([facility]) Former smoker 07/26/2018 Mixed hyperlipidemia 07/26/2018 Migraine 07/26/2018 Varicose veins of both lower extremities with co mplications Family History Medical History Relation Comments Cancer [...] Sex Assigned at Female 08/24/2024 4:29 PM TUBE DEPATCHER Legal Sex Female 5:12 AM TUBE DEPATCHER Gender Identity Not on file Sexual Orientation Not on file 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 Not on file Not on file Last Filed Vital Signs Vital Sign Reading Time Taken Comments Blood Pressure 119/87 07/05/2024 7:19 PM TUBE DEPATCHER Pulse 99 07/05/2024 7:19 PM TUBE DEPATCHER Temperature 36.8 C (98.2 F) 07/05/2024 7:19 PM TUBE DEPATCHER Respiratory Rate 16 07/05/2024 7:19 PM TUBE DEPATCHER Oxygen Saturation 95% 07/05/2024 8:00 PM TUBE DEPATCHER Inhaled Oxygen Concentration - - Weight 97.5 kg (215 lb) 07/05/2024 7:19 PM TUBE DEPATCHER Height 182.9 cm (6') 07/05/2024 7:19 PM TUBE DEPATCHER Body Mass Index 29.16 07/05/2024 7:19 PM TUBE DEPATCHER Plan of Treatment Health Maintenance Due Date [...] Cervical Cancer Screening wi th HPV 2003 Pneumococcal Vaccine: 50+ Years (1 of 1 - PCV) 2023 Zoster Vaccines (1 of 2) 2023 COVID-19 Vaccine (2023-2 5 season) 2024 Mammogram Screening 05/17/2024 05/17/2022, 12/17/2020 Meningococcal B Vaccine Aged Out No l onger eligible based on patient's age to complete this topic Meningococcal Vaccine Aged Out No lelsi john eligible based on patient's age to complete this topic RSV Immunizations Under 20 Months Aged Out No longer eligible b ased on patient's age to complete this topic Medical Devices Implanted Type Area Utilities And Maintenance Supervisor Device Identifier Shelf Expiration Date Model / Serial / Lot Suture Creede, Swivelock Tenodesis, Biocomposite 7x19.1mm - [id number] Implanted:Qty: 1 on 06/03/2022 by Jacky Diop MD at [facility] Creede Right: Shoulder [employer] [id number] 12/24/2025 [id number] / / [id number] Creede Suture Swivelock Self Punch 24.5mm Biocomposite - [id number] Implanted:Qty: 1 on 06/03/2022 by Jacky Diop MD at [facility] Creede Right: Shoulder [employer] [id number] 08/24/2025 [id number] / / [id number] Screw Alicia 2.7 Cortical 16 - [id number] Implanted:Qty: 2 on 03/13/2020 by Brad Garcia MD at [facility] Right: Foot [employer] [id number] / / Screw Cortical Depuy 2.7 X 26mm - [id number] Implanted:Qty: 1 on 03/13/2020 by Brad Garcia MD at [facility] Right: Foot [employer] [id number] / / Screw Cortical Depuy 2.7 X 22mm - [id number] Implanted:Qty: 1 on 03/13/2020 by Brad Garcia MD at [facility] Right: Foot [employer] [id number] / / Screw Cortical Depuy 2.7 X 20mm - [id number] Implanted:Qty: 1 on 03/13/2020 by Brad Garcia MD at [facility] Right: Foot [employer] [id number] / / Plate T Timax 2.7mm Screw Mini Fragment 3x2 Hole Bone Nonsterile - [id number] Implanted:Qty: 1 on 03/13/2020 by Brad Garcia MD at [facility] Right: Foot [employer] [id number] / / Explanted Type Area Utilities And Maintenance Supervisor Device Identifier Shelf Expiration Date Model / Serial / Lot Drill Bit Depuy 2.0mm - [id number] Explanted:Qty: 1 on 03/13/2020 at [facility] Right: Foot [employer] [id number] / / K-Wire Threaded Tip 1.6mm - [id number] Explanted:Qty: 2 on 03/13/2020 at [facility] Right: Foot [employer] [id number] / / Procedures Procedure Name Priority Date/Time Associated Diagnosis Comments MG SCREENING W JAQUAN EMIL DIGI Routine 05/17/2022 3:29 PM TUBE DEPATCHER Visit for screening mammogram from Last 3 Months or Most Recently Relevant to Health Maintenance Results * MG SCREENING W JAQUAN EMIL DIGI (05/17/2022 3:29 PM TUBE DEPATCHER) Anatomical Region Laterality Modality Breast Bilateral Mammography 05/17/2022 5:08 PM TUBE DEPATCHER Narrative 05/17/2022 5:08 PM TUBE DEPATCHER Examination: Digital screening mammogram with CAD. Clinical [...] BI-RADS 1 - NEGATIVE Ordered By: ARVIND Retanaally Signed By: Neville Abraham MD on 05/17/2022 5:08 PM Interpreted By: Neville Abraham MD, 05/17/2022 5:08 PM Arvind SIMMS MAMMO Final Result from Last 3 Months or Most Recently Relevant to Health Maintenance Insurance [employer] Advance Directives * Full Code (Latest Code Status on File) Date Activated Date Inactivated Comments 11/11/2020 5:47 PM 11/12/2020 8:16 PM * Full Code Date Activated Date Inactivated Comments 11/24/2018 11:44 AM 11/24/2018 4:05 PM Care Teams Sanitary Aide Relationship Specialty Start Date End Date Reddy Coleman MD [address] [place] [phone] PCP - General FAMILY PRACTICE 08/05/20 Steve Page MD EP Commercial Real Estate Broker CLINICAL CARDIAC ELECTROPHYSIOLOGY 08/01/18 Kishor Ibarra PA-C [address] [place] [phone] Electrophysiology 08/01/18 Jeyson Moreno MD [address] [place] [phone] Vascular/Commercial Real Estate Broker INTERNAL MEDICINE 10/05/18
--- OUTSIDE RECORDS SUMMARY | 2025-01-24 13:24 | XMS_ITS | Encounter Summary ---
Author Organization [facility] Address [facility] [place] [address] Care Team Providers Care Training Development Director Name Role Phone Steve Page MD Unavailable Unavailable Kishor Ibarra PA-C Unavailable [phone] Jeyson Moreno MD Unavailable Reddy Coleman MD Primary Care Provider Encounter Details Date Type Department Care Team (Late st Contact Info) Description 10/17/2023 LocAsian Message Enc [facility] [address], [facility] 1 [place] [address] Kori Garza PA [address] [place] [address] Visit Follow Up Social History Tobacco Use Types Packs/Day Years Used Date Smoking Tobacco: Former Cigarettes Q uit: 1998 Smokeless Tobacco: Never Comments:one pack every 2 mo [facility]-second hand smoke Alcohol Use Standard Drinks/Week Comments No 0 (1 standard drink = 0.6 oz pur e alcohol) AUDIT-C Answer Date Recorded Frequency of Alcohol Consumption Never 10/09/2018 Average Number of Drinks Not on file 019 Frequency of Binge Drinking Not on file 09/25 Comments No Sex and Gender Information Value Date Recorded Sex Assigned at Female 08/24/2024 4:29 PM MASON HELPER Legal Sex Female 5:12 AM MASON HELPER Gender Identity Not on file Sexual Orientation Not on file 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 Answer Entry Date Author Status No 11/11/2020 4:34 PM Jewels Peter RN Active documented in this encounter Plan of Treatment Not on file documented as of this encounter Visit Diagnoses Not on filedocumented in this encounter Care Teams Training Development Director Relationship Specialty Start Date End Date Reddy Coleman MD [address] [place] [phone] PCP - General FAMILY PRACTICE 08/05/20 Steve Page MD EP Brass Buffer CLINICAL CARDIAC ELECTROPHYSIOLOGY 08/01/18 Kishor Ibarra PA-C [address] [place] [phone] Electrophysiology 08/01/18 Jeyson Moreno MD [address] [place] [phone] Vascular/Brass Buffer INTERNAL MEDICINE 10/05/18 documented as of this encounter
--- OUTSIDE RECORDS SUMMARY | 2025-01-24 13:24 | XMS_ITS | Encounter Summary ---
Author Organization [facility] Address [address] [place] [address] Care Team Providers Care Odd Job Worker Name Role Phone Reddy Coleman MD Primary Care Provider [phone] Hernan Gallagher MD Unavailable Unavailable Steve Page MD Unavailable Unavailable Kishor Ibarra PA-C Unavailable [phone] Jeyson Moreno MD Unavailable August Rg MD Primary Care Provider [phone] Reddy Coleman MD Primary Care Provider [phone] Encounter Details Date Type Department Care Team (Late st Contact Info) Description 12/02/2018 Abstract SFL CONVERSION [address] [place] [address] , Generic Conversion, Social History Tobacco Use [...] Sex Assigned at Female 08/24/2024 4:29 PM PORTER LUGGAGE Legal Sex Female 5:12 AM PORTER LUGGAGE Gender Identity Not on file Sexual Orientation Not on file 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 on file Not [...] Rule Out 08/05/2020 08/05/2020 08/06/2020 3:30 PM PORTER LUGGAGE COVID-19 Rule Out 02/01/2023 02/01/2023 02/01/2023 5:36 PM CDT documented as of this encounter Care Teams Odd Job Worker Relationship Specialty Start Date End Date Reddy Coleman MD [address] [place] [phone] PCP - General FAMILY PRACTICE 07/04/18 05/24/19 August Rg MD [address] [place] [phone] PCP - General FAMILY PRACTICE 05/25/19 08/04/20 Reddy Coleman MD [address] [place] [phone] PCP - General FAMILY PRACTICE 08/05/20 Hernan Gallagher MD [address] [place] [phone] INTERVENTIONAL CARDIOLOGY 07/04/18 07/04/19 Steve Page MD [address] [place] [phone] EP Auto Bumper Mechanic CLINICAL CARDIAC ELECTROPHYSIOLOGY 08/01/18 Kishor Ibarra PA-C [address] [place] [phone] Electrophysiology 08/01/18 Jeyson Moreno MD [address] [place] [phone] Vascular/Auto Bumper Mechanic INTERNAL MEDICINE 10/05/18 documented as of this encounter
[2025-01-24 13:32] VITALS: BP 142/81; PULSE 92; RESP 16; TEMP 36.7; O2SAT 99
--- NOTE | 2025-01-24 13:51 | ED.DIZZY ---
HPI - Dizziness General Chief Complaint: Dizziness <Aye Gomez APRN - Last Filed: 01/24/25 13:54> Stated Complaint: DIZZINESS SINCE 0200 <Aye Gomez APRN - Last Filed: 01/24/25 13:54> Time Seen by Provider: 01/24/25 13:30 <Aye Gomez APRN - Last Filed: 01/24/25 13:54> Focused HPI: Patient is a 49-year-old female who presents to the ER with dizziness, shaking, and resolved visual changes. She reports her symptoms started around 2:00 a.m. this morning. Patient denies any current diplopia, headache, urinary symptoms, recent fevers, numbness/tingling in her extremities. She reports ?I just do not feel well. Patient reports she has had vertigo in the past but ?this feels different. She endorses a history of prediabetes and is on metformin. Patient also endorses a history of tachycardia and is on metoprolol. Patient reports ?it feels like the room is spinning at times. GENERAL: Ill-appearing, well-nourished, and in no acute distress. HEAD: Normocephalic, atraumatic. CHEST: Clear to auscultation. ?No respiratory distress. HEART: Regular rate and rhythm.? NEURO: ?Alert and oriented x3. Cranial nerves intact. Patient screened in triage and initial orders placed.? ?Additional care and disposition to be based upon?diagnostic testing and treatment. <Aye Gomez APRN - Last Filed: 01/24/25 13:54> History of Present Illness HPI Narrative: Agree with HPI. Dizziness worse with turning her head. <Jordan Early MD - Last Filed: 01/24/25 17:44> Related Data Home Medications: Home Medications ?Medication ?Instructions ?Recorded ?Confirmed ?Last Taken ?Type atorvastatin 20 mg tablet 20 mg PO DAILY 09/23/22 11/05/24 11/01/24 History metoprolol tartrate 25 mg tablet 12.5 mg PO BID 09/23/22 11/05/24 11/05/24 History norethindrone (contraceptive) 0.35 0.35 mg PO DAILY 09/23/22 11/05/24 11/01/24 History mg tablet omeprazole 40 mg capsule,delayed 40 mg PO DAILY 09/23/22 11/05/24 11/01/24 History release trazodone 50 mg tablet 50 mg PO DAILY 09/23/22 11/05/24 11/01/24 History duloxetine 20 mg capsule,delayed 40 mg PO DAILY 10/16/24 11/05/24 11/01/24 History release famotidine 40 mg tablet 40 mg PO DAILY 10/16/24 11/05/24 11/01/24 History ibuprofen 800 mg tablet 800 mg PO TID PRN pain 10/16/24 11/05/24 Unknown History metformin 500 mg tablet 500 mg PO DAILY 10/16/24 11/05/24 11/01/24 History tramadol 50 mg tablet 50 mg PO Q6H PRN pain 10/16/24 10/31/24 Unknown History <Aye Gomez, WINDOWS SYSTEMS ADMIN - Last Filed: 01/24/25 13:54> Allergies/Adverse Reactions: Allergies Allergy/AdvReac Type Severity Reaction Status Date / Time bacitracin (From Neosporin Allergy Mild Rash Verified 01/18/25 14:21 ([id number])) codeine Allergy Mild Rash Verified 01/18/25 14:21 neomycin (From Neosporin Allergy Mild Rash Verified 01/18/25 14:21 ([id number]-[id number])) polymyxin B (From Neosporin Allergy Mild Rash Verified 01/18/25 14:21 (hjo-hcy-egalt)) Sulfa (Sulfonamide Allergy Mild Rash Verified 01/18/25 14:21 Antibiotics) <Aye Gomez, WINDOWS SYSTEMS ADMIN - Last Filed: 01/24/25 13:54> Review of Systems Review of Systems: All systems reviewed & are unremarkable except as noted in HPI and below <Jordan Early MD - Last Filed: 01/24/25 17:44> Constitutional: Constitutional: Reports no additional constitutional complaints <Jordan Early MD - Last Filed: 01/24/25 17:44> ENT: Reports system reviewed and no additional complaints, except as documented <Jordan Early MD - Last Filed: 01/24/25 17:44> Cardiovascular: Cardiovascular: Reports no additional cardiovascular complaints <Jordan Early MD - Last Filed: 01/24/25 17:44> Respiratory: Respiratory: Reports no additional respiratory complaints <Jordan Early MD - Last Filed: 01/24/25 17:44> PMFSH Past Medical History Medical History: Medical History HEDY (obstructive sleep apnea) SVT (supraventricular tachycardia) Diabetes Dysphagia HLD (hyperlipidemia) Depression <Aye Gomez APRN - Last Filed: 01/24/25 13:54> Surgical History Surgical History: Surgical History H/O cardiac radiofrequency ablation <Aye Gomez APRN - Last Filed: 01/24/25 13:54> Social History Social History: Social History Smoking status: Former smoker Tobacco type: cigarettes Substance use type: does not use Living arrangements: with family Spiritual care concerns: No <Aye Gomez APRN - Last Filed: 01/24/25 13:54> Exam Narrative: GENERAL: Well-appearing, well-nourished, and in no acute distress. HEAD: Normocephalic, atraumatic. ENT: Mucous membranes moist. TM's normal bilaterally, CHEST: Clear to auscultation. No respiratory distress. HEART: Regular rate and rhythm. Normal peripheral pulses. EXTREMITIES: Normal range of motion. No edema. SKIN: Warm, dry, no rash. NEURO: Alert and oriented x3. PSYCH: Normal mood and affect. <Jordan Early MD - Last Filed: 01/24/25 17:44> Course Course Emergency Course: Patient resting comfortably. Feels improved after fluids and meclizine. Discharge home. <Jordan Early MD - Last Filed: 01/24/25 17:44> Vital Signs Vital signs: Vital Signs Temperature 98.1 F 01/24/25 13:32 Pulse Rate 92 01/24/25 13:32 Respiratory Rate 16 01/24/25 13:32 Blood Pressure 142/81 H 01/24/25 13:32 Pulse Oximetry 99 01/24/25 13:32 Oxygen Delivery Room Air 01/24/25 13:32 Temperature 98.0 F 01/24/25 15:04 Pulse Rate 92 01/24/25 15:04 Respiratory Rate 16 01/24/25 15:04 Blood Pressure 128/85 01/24/25 15:04 Pulse Oximetry 99 01/24/25 15:04 Oxygen Delivery Room Air 01/24/25 15:04 <Aye Gomez APRN - Last Filed: 01/24/25 13:54> Vital Signs Temperature 98.1 F 01/24/25 13:32 Pulse Rate 92 01/24/25 13:32 Respiratory Rate 16 01/24/25 13:32 Blood Pressure 142/81 H 01/24/25 13:32 Pulse Oximetry 99 01/24/25 13:32 Oxygen Delivery Room Air 01/24/25 13:32 Temperature 98.0 F 01/24/25 15:04 Pulse Rate 92 01/24/25 15:04 Respiratory Rate 16 01/24/25 15:04 Blood Pressure 128/85 01/24/25 15:04 Pulse Oximetry 99 01/24/25 15:04 Oxygen Delivery Room Air 01/24/25 15:04 <Jordan Early MD - Last Filed: 01/24/25 17:44> MDM - Dizziness Lab Data Result diagrams: 01/24/25 14:24 01/24/25 14:24 <Aye Gomez APRN - Last Filed: 01/24/25 13:54> Labs: Lab Results 01/24/25 01/24/25 01/24/25 Range/Units 13:35 14:24 15:12 WBC 7.7 (4.5-10.0) K/mm3 RBC 4.18 L (4.2-5.4) M/mm3 Hgb 12.0 (12.0-15.0) g/dL Hct 37.1 (37.0-47.0) % MCV 88.8 (80-100) fl MCH 28.7 (26-34) pg MCHC 32.3 (32-36) g/dl RDW 14.4 (11.5-14.5) % Plt Count 260 (150-375) k/mm3 MPV 10.5 H (7.4-10.4) fl Immature Gran % (Auto) 0.4 (0-0.5) % Neut % (Auto) 52.5 (45.5-73.1) % Lymph % (Auto) 36.6 (18.3-44.2) % Daniels % (Auto) 8.7 H (2.6-8.5) % Eos % (Auto) 1.4 (0-4.4) % Baso % (Auto) 0.4 (0.2-1.2) % Lymph # (Auto) 2.83 (0.9-3.2) K/mm3 Daniels # (Auto) 0.7 H (0.1-0.6) K/mm3 Eos # (Auto) 0.1 (0-0.3) K/mm3 Baso # (Auto) 0.0 (0.0-0.1) K/mm3 Abs Immat Gran (auto) 0.03 (0.00-0.031) K/mm3 Absolute Neuts (auto) 4.1 (1.3-6.7) K/mm3 Absolute Nucleated RBC 0.000 (0.0-0.012) K/mm3 Nucleated RBC % 0.0 (0.0-0.2) % Sodium 141 (137-145) mmol/L Potassium 3.5 (3.4-5.0) mmol/L Chloride 107 (98-107) mmol/L Carbon Dioxide 28 (22-30) mmol/L Anion Gap 6 (4-12) mmol/L BUN 11 (7-17) mg/dL Creatinine 0.86 (0.7-1.0) mg/dL Estim Creat Clear Calc 78 ml/min Estimated GFR > 60 (59 - ) Glucose 111 H (65-110) mg/dL POC Capillary Glucose 121 H (65-105) mg/dl Calcium 9.3 (8.4-10.2) mg/dL Total Bilirubin 0.4 (0.2-1.3) mg/dL AST 23 (14-36) U/L ALT 19 (6-35) U/L Alkaline Phosphatase 81 (38-126) U/L Total Protein 6.9 (6.3-8.2) g/dL Albumin 4.0 (3.5-5.1) g/dL Urine Color Yellow (Yellow) Urine Appearance Clear (Clear) Urine pH 6.5 (5.0-9.0) Ur Specific Fernley 1.007 (1.001-1.035) Urine Protein Negative (Negative) mg/dL Urine Glucose (UA) Negative (Negative) mg/dL Urine Ketones Negative (Negative) mg/dL Ur Blood (Man) Negative (Negative) Urine Nitrate Negative (Negative) Urine Bilirubin Negative (Negative) Urine Urobilinogen 0.2 (<2.0) mg/dL Leukocyte Esterase Rfl Negative (Negative) NEWTON/UL <Aye Gomez, WINDOWS SYSTEMS ADMIN - Last Filed: 01/24/25 13:54> Lab Results 01/24/25 01/24/25 01/24/25 Range/Units 13:35 14:24 15:12 WBC 7.7 (4.5-10.0) K/mm3 RBC 4.18 L (4.2-5.4) M/mm3 Hgb 12.0 (12.0-15.0) g/dL Hct 37.1 (37.0-47.0) % MCV 88.8 (80-100) fl MCH 28.7 (26-34) pg MCHC 32.3 (32-36) g/dl RDW 14.4 (11.5-14.5) % Plt Count 260 (150-375) k/mm3 MPV 10.5 H (7.4-10.4) fl Immature Gran % (Auto) 0.4 (0-0.5) % Neut % (Auto) 52.5 (45.5-73.1) % Lymph % (Auto) 36.6 (18.3-44.2) % Daniels % (Auto) 8.7 H (2.6-8.5) % Eos % (Auto) 1.4 (0-4.4) % Baso % (Auto) 0.4 (0.2-1.2) % Lymph # (Auto) 2.83 (0.9-3.2) K/mm3 Daniels # (Auto) 0.7 H (0.1-0.6) K/mm3 Eos # (Auto) 0.1 (0-0.3) K/mm3 Baso # (Auto) 0.0 (0.0-0.1) K/mm3 Abs Immat Gran (auto) 0.03 (0.00-0.031) K/mm3 Absolute Neuts (auto) 4.1 (1.3-6.7) K/mm3 Absolute Nucleated RBC 0.000 (0.0-0.012) K/mm3 Nucleated RBC % 0.0 (0.0-0.2) % Sodium 141 (137-145) mmol/L Potassium 3.5 (3.4-5.0) mmol/L Chloride 107 (98-107) mmol/L Carbon Dioxide 28 (22-30) mmol/L Anion Gap 6 (4-12) mmol/L BUN 11 (7-17) mg/dL Creatinine 0.86 (0.7-1.0) mg/dL Estim Creat Clear Calc 78 ml/min Estimated GFR > 60 (59 - ) Glucose 111 H (65-110) mg/dL POC Capillary Glucose 121 H (65-105) mg/dl Calcium 9.3 (8.4-10.2) mg/dL Total Bilirubin 0.4 (0.2-1.3) mg/dL AST 23 (14-36) U/L ALT 19 (6-35) U/L Alkaline Phosphatase 81 (38-126) U/L Total Protein 6.9 (6.3-8.2) g/dL Albumin 4.0 (3.5-5.1) g/dL Urine Color Yellow (Yellow) Urine Appearance Clear (Clear) Urine pH 6.5 (5.0-9.0) Ur Specific Fernley 1.007 (1.001-1.035) Urine Protein Negative (Negative) mg/dL Urine Glucose (UA) Negative (Negative) mg/dL Urine Ketones Negative (Negative) mg/dL Ur Blood (Man) Negative (Negative) Urine Nitrate Negative (Negative) Urine Bilirubin Negative (Negative) Urine Urobilinogen 0.2 (<2.0) mg/dL Leukocyte Esterase Rfl Negative (Negative) NEWTON/UL <Jordan Early MD - Last Filed: 01/24/25 17:44> Imaging Data Radiologist's impression: ITS Impressions Head CT 01/24/25 14:11 IMPRESSION: 1. Small left mastoid effusion. Otherwise unremarkable head CT with normal brain.. <Jordan Early MD - Last Filed: 01/24/25 17:44> Discharge Plan Discharge Clinical Impression: Vertigo <Aye Gomez, BETSEY - Last Filed: 01/24/25 13:54> Patient Disposition: Home <Aye Gomez APRN - Last Filed: 01/24/25 13:54> Condition: Stable <Aye Gomez APRN - Last Filed: 01/24/25 13:54> Instructions: Vertigo (ED) <Aye Gomez APRN - Last Filed: 01/24/25 13:54> Additional Instructions: Return the ER if you have fever over 100.4? F, you cannot keep down food water, you lose consciousness, or you have additional concerns. <Aye Gomez APRN - Last Filed: 01/24/25 13:54> Patient Language: Latvian <Aye Gomez APRN - Last Filed: 01/24/25 13:54> Prescriptions: New meclizine 25 mg tablet 25 mg PO TID Qty: 14 0RF No Action atorvastatin 20 mg tablet 20 mg PO DAILY trazodone 50 mg tablet 50 mg PO DAILY omeprazole 40 mg capsule,delayed release(DR/EC) 40 mg PO DAILY norethindrone (contraceptive) 0.35 mg tablet 0.35 mg PO DAILY metoprolol tartrate 25 mg tablet 12.5 mg PO BID tramadol 50 mg tablet 50 mg PO Q6H PRN (Reason: pain) famotidine 40 mg tablet 40 mg PO DAILY duloxetine 20 mg capsule,delayed release(DR/EC) 40 mg PO DAILY ibuprofen 800 mg tablet 800 mg PO TID PRN (Reason: pain) metformin 500 mg tablet 500 mg PO DAILY prucalopride [Motegrity] 2 mg tablet 2 mg PO DAILY Qty: 60 3RF <Aye Gomez APRN - Last Filed: 01/24/25 13:54> Follow-up/Referrals: [place],MD Reddy [Primary Care Provider] - 1 Week <Aye Gomez APRN - Last Filed: 01/24/25 13:54>
--- OUTSIDE RECORDS SUMMARY | 2025-01-24 14:05 | XMS_ITS | Encounter Summary ---
Author Organization [facility] Address [address] [place] [address] Care Team Providers Care Director Of Government Sales Name Role Phone Steve Page MD Unavailable Unavailable Kishor Ibarra PA-C Unavailable [phone] Jeyson Moreno MD Unavailable Reddy Coleman MD Primary Care Provider Encounter Details Date Type Department Care Team (Late st Contact Info) Description 08/10/2023 [employer] Message Enc [facility] [address], [facility] 1 [place] [address] Jacky Diop MD [address] [place] [address] Visit Follow Up Social History Tobacco Use Types Packs/Day Years Used Date Smoking Tobacco: Former Cigarettes Q uit: 1998 Smokeless Tobacco: Never Comments:one pack every 2 mo [facility]-second hand smoke Alcohol [...] Sex Assigned at Female 08/24/2024 4:29 PM PARTS SALES ASSOCIATE Legal Sex Female 5:12 AM PARTS SALES ASSOCIATE Gender Identity Not on file Sexual Orientation Not on file 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
--- OUTSIDE RECORDS SUMMARY | 2025-01-24 14:06 | XMS_ITS | Clinical Summary ---
Author Organization [facility] Address [address] [place] [address] Care Team Providers Care Burn Out Scarfing Operator Name Role Phone Reddy Coleman MD [...] on file Legal Sex Female 7:28 PM ELECTRICAL CONTROLS ASSEMBLER Gender Identity Not on file Sexual Orientation Not on file Obstetrics History Last Filed Vital Signs Vital Sign Reading Time Taken Comments Blood Pressure 139/93 06/23/2018 3:56 PM ELECTRICAL CONTROLS ASSEMBLER Pulse 113 06/23/2018 3:56 PM ELECTRICAL CONTROLS ASSEMBLER Temperature 36.7 C (98.1 F) 06/23/2018 3:56 PM ELECTRICAL CONTROLS ASSEMBLER Respiratory Rate 16 06/23/2018 3:56 PM ELECTRICAL CONTROLS ASSEMBLER Oxygen Saturation 96% 06/23/2018 3:56 PM ELECTRICAL CONTROLS ASSEMBLER Inhaled Oxygen Concentration - - Weight 99.6 [...] patient's age to complete this topic Insurance [employer] OPEN ACCESS Care Teams Burn Out Scarfing Operator Relationship Specialty Start Date End Date Reddy Coleman MD PCP - General 06/23/18
--- OUTSIDE RECORDS SUMMARY | 2025-01-24 14:06 | XMS_ITS | Encounter Summary ---
Author Organization [facility] Address [facility] [place] [address] Care Team Providers Care Street Supervisor Name Role Phone Steve Page MD Unavailable Unavailable Kishor Ibarra PA-C Unavailable [phone] Jeyson Moreno MD Unavailable Reddy Coleman MD Primary Care Provider Encounter Details Date Type Department Care Team (Late st Contact Info) Description 10/17/[address] 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
--- OUTSIDE RECORDS SUMMARY | 2025-01-24 14:06 | XMS_ITS | Referral Summary ---
Author Organization [facility] Address [address] [place] [address] Care Team Providers Care Corporate Planner Name Role Phone Reddy Coleman MD Primary [...] on file Legal Sex Female 7:28 PM THERMAL SURFACING MACHINE OPERATOR Gender Identity Not on file Sexual Orientation Not on file Last Filed Vital Signs Vital Sign Reading Time Taken Comments Blood Pressure 139/93 06/23/2018 3:56 PM THERMAL SURFACING MACHINE OPERATOR Pulse 113 06/23/2018 3:56 PM THERMAL SURFACING MACHINE OPERATOR Temperature 36.7 C (98.1 F) 06/23/2018 3:56 PM THERMAL SURFACING MACHINE OPERATOR Respiratory Rate 16 06/23/2018 3:56 PM THERMAL SURFACING MACHINE OPERATOR Oxygen Saturation 96% 06/23/2018 3:56 PM THERMAL SURFACING MACHINE OPERATOR Inhaled Oxygen Concentration - - Weight 99.6 kg (219 lb 8 oz) 09/08/2023 3:08 PM CDT Height 182.9 cm (6') 09/08/2023 3:08 PM CDT Body Mass Index 29.77 09/08/2023 3:08 PM CDT Plan of Treatment Not on file Insurance [facility] ACCESS CHOICE [employer] OPEN ACCESS Care Teams Corporate Planner Relationship Specialty Start Date End Date Reddy Coleman MD PCP - General 06/23/18
--- OUTSIDE RECORDS SUMMARY | 2025-01-24 14:06 | XMS_ITS | Encounter Summary ---
Author Organization [facility] Address [address] [place] [address] Care Team Providers Care Community Health Navigator Name Role Phone Reddy Coleman MD Primary Care Provider [phone] Hernan Gallagher MD Unavailable Unavailable Steve Page MD Unavailable Unavailable Kishor Ibarra PA-C Unavailable [phone] Jeyson Moreno MD Unavailable August Rg MD Primary Care Provider [phone] Reddy Coleman MD Primary Care Provider [phone] Encounter Details Date Type Department Care Team (Late st Contact Info) Description 12/02/2018 Abstract SFL CONVERSION [address] [place] [address] , Generic Conversion, Social History Tobacco Use [...] Sex Assigned at Female 08/24/2024 4:29 PM MACHINE MAINTENANCE REPAIRER Legal Sex Female 5:12 AM MACHINE MAINTENANCE REPAIRER Gender Identity Not on file Sexual Orientation Not on file 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 Not [...] Rule Out 08/05/2020 08/05/2020 08/06/2020 3:30 PM MACHINE MAINTENANCE REPAIRER COVID-19 Rule Out 02/01/2023 02/01/2023 02/01/2023 5:36 PM CDT documented as of this encounter Care Teams Community Health Navigator Relationship Specialty Start Date End Date Reddy Coleman MD [address] [place] [phone] PCP - General FAMILY PRACTICE 07/04/18 05/24/19 August Rg MD [address] [place] [address] [phone] PCP - General FAMILY PRACTICE 05/25/19 08/04/20 Reddy Coleman MD [address] [place] [phone] PCP - General FAMILY PRACTICE 08/05/20 Hernan Gallagher MD [address] [place] [phone] INTERVENTIONAL CARDIOLOGY 07/04/18 07/04/19 Steve Page MD [address] [place] [phone] EP Diabetic Educator CLINICAL CARDIAC ELECTROPHYSIOLOGY 08/01/18 Kishor Ibarra PA-C [address] [place] [phone] Electrophysiology 08/01/18 Jeyson Moreno MD [address] [place] [phone] Vascular/Diabetic Educator INTERNAL MEDICINE 10/05/18 documented as of this encounter
--- OUTSIDE RECORDS SUMMARY | 2025-01-24 14:06 | XMS_ITS | Clinical Summary ---
Author Organization [facility] Address [address] [place] [address] Care Team Providers Care Library Associate Name Role Phone Steve Page MD Unavailable Unavailable Kishor Ibarra PA-C Unavailable [phone] Jeyson Moreno MD Unavailable Reddy Coleman [...] (03/14/2023): Added automatically from request for surgery [id number] History of arthroscopy of right shoulder 023 Superior glenoid labrum lesi on of right shoulder, subsequent encounter 05/05/2022 Overview (05/05/2022): Added automatically from request for surgery [id number] Shoulder impingement syndrome, right 01/12/2022 DVT (deep venous thrombosis) ([facility]) 0 11/11/2020 Acquired hallux valgus of right foot 07/29/2020 Hallux valgus (acquired), right foot 05/02/2020 Chronic venous insufficiency 10/31/2018 Varicose veins of right leg with edema 9 Chest pain of uncertain etiology 07/26/2018 Palpitations 07/26/2018 SVT (supraventricular tachycardia) ([facility]) Former smoker 07/26/2018 Mixed hyperlipidemia [...] Sex Assigned at Female 08/24/2024 4:29 PM POT FIRER Legal Sex Female 5:12 AM POT FIRER Gender Identity Not on file Sexual Orientation Not on file 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 Not on file Not on file Not on file Last Filed Vital Signs Vital Sign Reading Time Taken Comments Blood Pressure 119/87 07/05/2024 7:19 PM POT FIRER Pulse 99 07/05/2024 7:19 PM POT FIRER Temperature 36.8 C (98.2 F) 07/05/2024 7:19 PM POT FIRER Respiratory Rate 16 07/05/2024 7:19 PM POT FIRER Oxygen Saturation 95% 07/05/2024 8:00 PM POT FIRER Inhaled Oxygen Concentration - - Weight 97.5 kg (215 lb) 07/05/2024 7:19 PM POT FIRER Height 182.9 cm (6') 07/05/2024 7:19 PM POT FIRER Body Mass Index 29.16 07/05/2024 7:19 PM POT FIRER Plan of Treatment Health Maintenance Due Date [...] this topic Medical Devices Implanted Type Area Shoe Repairer Apprentice Device Identifier Shelf Expiration Date Model / Serial / Lot Suture [place], Swivelock Tenodesis, Biocomposite 7x19.1mm - [id number] Implanted:Qty: 1 on 06/03/2022 by Jacky Diop MD at [facility] [place] Right: Shoulder [employer] [id number] 12/24/2025 [id number]- [id number] / / [id number] [place] Suture Swivelock Self Punch 24.5mm Biocomposite - [id number] Implanted:Qty: 1 on 06/03/2022 by Jacky Diop MD at [facility] [place] Right: Shoulder [employer] [id number] 08/24/2025 [id number] / / [id number] Screw Alicia 2.7 Cortical 16 - [id number] Implanted:Qty: 2 on 03/13/2020 by Brad Garcia MD at [facility] Right: Foot [employer] [id number] / / Screw Cortical Depuy 2.7 X 26mm - [id number] Implanted:Qty: 1 on 03/13/2020 by Brad Garcia MD at [facility] Right: Foot [employer] [id number] / / Screw Cortical Depuy 2.7 X 22mm - [id number] Implanted:Qty: 1 on 03/13/2020 by Brad Garcia MD at [facility] Right: Foot [employer] [id number] / / Screw Cortical Depuy 2.7 X 20mm - [id number] Implanted:Qty: 1 on 03/13/2020 by Brad Garcia MD at [facility] Right: Foot [employer] [id number] / / Plate T Timax 2.7mm Screw Mini Fragment 3x2 Hole Bone Nonsterile - [id number] Implanted:Qty: 1 on 03/13/2020 by Brad Garcia MD at [facility] Right: Foot [employer] [id number] / / Explanted Type Area Shoe Repairer Apprentice Device Identifier Shelf Expiration Date Model / Serial / Lot Drill Bit Depuy 2.0mm - [id number] Explanted:Qty: 1 on 03/13/2020 at [facility] Right: Foot [employer] [id number] / / K-Wire Threaded Tip 1.6mm - [id number] Explanted:Qty: 2 on 03/13/2020 at [facility] Right: Foot [employer] [id number] / / Procedures Procedure Name Priority Date/Time Associated Diagnosis Comments MG SCREENING W JAQUAN EMIL DIGI Routine 05/17/2022 3:29 PM POT FIRER Visit for screening mammogram from Last 3 Months or Most Recently Relevant to Health Maintenance Results * MG SCREENING W JAQUAN EMIL DIGI (05/17/2022 3:29 PM POT FIRER) Anatomical Region Laterality Modality Breast Bilateral Mammography 05/17/2022 5:08 PM POT FIRER Narrative 05/17/2022 5:08 PM POT FIRER Examination: Digital screening mammogram with CAD. Clinical [...] 11:44 AM 11/24/2018 4:05 PM Care Teams Library Associate Relationship Specialty Start Date End Date Reddy Coleman MD [address] [place] [phone] PCP - General FAMILY PRACTICE 08/05/20 Steve Page MD EP Therapy Tech CLINICAL CARDIAC ELECTROPHYSIOLOGY 08/01/18 Kishor Ibarra PA-C [address] [place] [phone] Electrophysiology 08/01/18 Jeyson Moreno MD [address] [place] [phone] Vascular/Therapy Tech INTERNAL MEDICINE 10/05/18
[2025-01-24 14:32] LABS: Hematocrit 37.1 % (37.0-47.0); Hemoglobin 12.0 g/dL (12.0-15.0); Immature Granulocyte Percent A 0.4 % (0-0.5); Lymphocytes Absolute Auto 2.83 K/mm3 (0.9-3.2); Mean Corpuscular HGB Conc 32.3 g/dl (32-36); Mean Corpuscular Hemoglobin 28.7 pg (26-34); Mean Corpuscular Volume 88.8 fl (80-100); Nucleated Red Blood Cells Absolute Auto 0.000 K/mm3 (0.0-0.012); Nucleated Red Blood Cells Perc 0.0 % (0.0-0.2); Platelet Count Result 260 k/mm3 (150-375); Red Blood Count 4.18 M/mm3 (4.2-5.4); White Blood Count 7.7 K/mm3 (4.5-10.0)
[2025-01-24 14:55] LABS: Alanine Aminotransferase 19 U/L (6-35); Albumin Level 4.0 g/dL (3.5-5.1); Alkaline Phosphatase 81 U/L (38-126); Anion Gap 6 mmol/L (4-12); Aspartate Amino Transferase 23 U/L (14-36); Bilirubin,Total 0.4 mg/dL (0.2-1.3); Blood Urea Nitrogen 11 mg/dL (7-17); Calcium 9.3 mg/dL (8.4-10.2); Carbon Dioxide 28 mmol/L (22-30); Chloride 107 mmol/L (98-107); Estimated CRCL calculation 78 ml/min; Estimated Glomerular Filt Rate > 60; Glucose 111 mg/dL (65-110); Potassium 3.5 mmol/L (3.4-5.0); Sodium 141 mmol/L (137-145); Total Protein 6.9 g/dL (6.3-8.2)
[2025-01-24 15:04] VITALS: BP 128/85; PULSE 92; RESP 16; TEMP 36.7; O2SAT 99
[2025-01-24 15:19] LABS: Add Urine Microscopic? NO; Appearance Urine Clear (Clear); Glucose Urine UA Negative (Negative); Leukocyte Esterase Ur Negative LEU/UL (Negative); Nitrate Urine Negative (Negative); Specific Grav Ur 1.007 (1.001-1.035)
[2025-01-24] MEDS: MECLIZINE HCL 25 MG TABLET PO (16:49)
[2025-01-24] MEDS: SODIUM CHLORIDE 0.9% IV 1,000 ML 999 ML IV CONT (17:15)
[2025-01-24 17:56] VITALS: BP 138/71; PULSE 81; RESP 16; TEMP 36.5; O2SAT 97
== END 2025-01-24 17:56 | disposition home or self-care (01) ==
PROVIDERS: Registered Nurse; Emergency Provider Emergency Medicine; PCP Family Medicine
DX: R42 Dizziness and giddiness (principal); R73.03 Prediabetes; E78.5 Hyperlipidemia, unspecified; G47.33 Obstructive sleep apnea (adult) (pediatric); F32.A Depression, unspecified; Z87.891 Personal history of nicotine dependence; Z79.84 Long term (current) use of oral hypoglycemic drugs; Z79.3 Long term (current) use of hormonal contraceptives; Z79.899 Other long term (current) drug therapy
CPT/HCPCS: 36415; 70450; 80053; 81003; 82948; 85025; 96360; 99284; A9270; J7030